=== PATIENT | female | born 1965 | race African-American/Black ===

== ENCOUNTER 2017-03-24 19:20 | Inpatient (IN) | payer OTHER ==
[2017-03-24 19:59] LABS: Hemoglobin 14.2 g/dL (12.0-16.0); Mean Corpuscular Hemoglobin 25.5 pg (27.0-31.0); Mean Corpuscular Volume 75.1 fl (81.0-99.0); Mean Platelet Volume 9.5 fL (7.4-10.4); Platelet Count 175 thou/uL (130-400); RBC Distribution Width 13.7 % (11.5-14.5); Red Blood Cell (RBC) Count 5.58 mill/uL (4.20-5.40); White Blood Cell (WBC) Count 6.7 thou/uL (4.8-10.8)
[2017-03-24 20:10] LABS: PTT 27.2 SEC (22.9-36.1); Prothrombin Time 13.7 SEC (12.0-14.7)
[2017-03-24 20:12] LABS: D-Dimer Test 3.1 *mcg/mL (0.27-0.43)
[2017-03-24 20:19] LABS: ALT (SGPT) 28 U/L (8-55); AST (SGOT) 28 U/L (5-34); Albumin 3.6 g/dL (3.5-5.0); Alkaline Phosphatase 76 U/L (40-150); Anion Gap 38 mmol/L (10-20); Bilirubin, Total 0.6 mg/dL (0.2-1.2); CK (CPK) 333 U/L (29-168); Calc. Creatinine Clearance 0 mL/min (70-130); Calcium 9.9 mg/dL (7.8-10.44); Carbon Dioxide 10 mmol/L (22-29); Chloride 97 mmol/L (98-107); Estimated GFR-MDRD 2; Globulin 6.9 g/dL (2.4-3.5); Glucose 117 mg/dL (70-105); Lipase 53 U/L (8-78); Magnesium 3.5 mg/dL (1.6-2.6); Potassium 6.5 mmol/L (3.5-5.1); Protein, Total 10.5 g/dL (6.0-8.3); Sodium 138 mmol/L (136-145)
[2017-03-24 20:22] LABS: #Basophils 0.1 thou/uL (0.0-0.2); #Lymphocytes 1.6 thou/uL (1.20-3.40); #Monocytes 0.4 thou/uL (0.11-0.59); #Neutrophils 4.6 thou/uL (1.40-6.50); %Basophils 1.2 % (0.0-1.0); %Eosinophils 0.1 % (0.0-10.0); %Monocytes 5.4 % (0.0-10.0); %Neutrophils 69.4 % (42.0-75.0); Large Platelets SLIGHT; MDiff Complete? YES; PLT Morphology Comment Appears Adequate; RBC Morphology Normal
[2017-03-24 20:30] LABS: Troponin I 0.037 ng/mL (< 0.028)
[2017-03-24 20:33] LABS: CKMB 7.5 ng/mL (0-6.6)
[2017-03-24 20:40] LABS: BUN (Urea Nitrogen) 186 mg/dL (9.8-20.1)
--- NOTE | 2017-03-24 21:22 | RAD ---
PORTABLE CHEST ONE VIEW: 03/24/17 at 7:08 p.m. HISTORY: Sepsis. FINDINGS: Comparison made with exam of 12/31/14. The heart size is normal. No confluent areas of consolidation, pneumothorax or pleural effusions are seen. IMPRESSION: No radiographic evidence of acute cardiopulmonary process. POS: [facility]
--- NOTE | 2017-03-24 21:36 | CT ---
CT BRAIN WITHOUT CONTRAST 03/24/17 HISTORY: Altered mental status, dizziness, headache. FINDINGS: No evidence of acute infarct, hemorrhage, midline shift or abnormal extra-axial fluid collections are seen. Ventricular size is normal and the basilar cisterns patent. The bony calvarium is intact. Ther e is mucosal disease in the paranasal sinuses. IMPRESSION: No CT evidence of acute intracranial process. POS: [facility]
[2017-03-24] MEDS ORDERED: Calcium Chloride 1 GM/10 ML Abboject SYRINGE ONE (21:41)
[2017-03-24] MEDS ORDERED: Dextrose 50% Abboject 50 ML SYRINGE ONE (21:42)
[2017-03-24] MEDS ORDERED: Sodium Bicarb 50 MEQ/50 ML Abboject 8.4% SYRINGE ONE (21:43)
[2017-03-24 21:50] LABS: Bilirubin Moderate (Negative); Blood, Urine Small (Negative); Clarity CLOUDY (Clear); Glucose, Urine (Dipstick) Negative (Negative); Leukocyte Negative (Negative); Nitrite Negative (Negative); Protein, Urine (Dipstick) 100 mg/dL (Neg-Trace); Specific Gravity, Urine 1.024 (1.002-1.036); Urobilinogen 0.2 mg/dL (0.2-1.0)
[2017-03-24 21:54] LABS: Bacteria/HPF None Seen HPF (None Seen); Squamous Epithelial 21-50 HPF (0-3)
[2017-03-24 21:55] LABS: Yeast-AUWi Flag 209.4 (0-25.0)
[2017-03-24] MEDS ORDERED: cefTRIAXone\\ROCEPHIN 2 GM in Sodium Chloride 0.9% 100 ML IVPB SCH (22:00)
[2017-03-24] MEDS ORDERED: Insulin Regular 300 UNITS/3 ML VIAL IVP SCH (22:00)
[2017-03-24 22:03] LABS: Transitional Epithelial 0-3 HPF (0-3); Yeast-All Forms None Seen HPF (None Seen)
[2017-03-24 22:04] LABS: Hyaline Casts/LPF 0-3 HYALINE CAST LPF (0-3 Hyaline); Other Casts/LPF 7-10 COARSE GRAN LPF (0-3 Hyaline)
[2017-03-24] MEDS ORDERED: Insulin Regular 300 UNITS/3 ML VIAL ONE (22:09)
[2017-03-24 22:30] LABS: Creatinine, Urine 377.77 mg/dL (47-110)
--- NOTE | 2017-03-25 00:02 | CT ---
CT ABDOMEN AND PELVIS WITHOUT CONTRAST 03/24/17 HISTORY: Abdominal pain. FINDINGS: Absence of oral and IV contrast reduces the sensitivity of the exam particularly for evaluation of so lid organs and bowel. There are mild reticulonodular infiltrates in the lung bases, right greater than left. No calcified g allstones are seen. No calculi noted in the kidneys, ureters or urinary bladder. No hydroureteronephr osis seen on either side. There is a 11 mm hyperdense focus in the posterior right renal cortex likel y hemorrhagic cyst. There is sigmoid diverticulosis without evidence of diverticulitis. The uterus is present. There is a Lassiter catheter in a nondistended urinary bladder with presence of air in the lum en. There are vascular calcifications without evidence of aneurysmal dilatation of the abdominal aorta. T here are degenerative changes in the spine. IMPRESSION: 1. No CT evidence of urinary tract calculi or obstruction. 2. Sigmoid diverticulosis. POS: [facility]
[2017-03-25] MEDS ORDERED: Lorazepam 2 MG/ML VIAL ONE (00:42)
[2017-03-25] MEDS ORDERED: Lidocaine 1% (PF) 30 ML VIAL ONE (00:57)
[2017-03-25 02:11] LABS: HBSAg Index 0.26 S/CO (0-0.99); Hep B Surf Ag Non-Reactive S/CO (NonReactive)
[2017-03-25] MEDS ORDERED: Ondansetron HCl/PF 4 MG/2 ML Vial IVP PRN (03:37)
[2017-03-25] MEDS ORDERED: Ondansetron ODT 4 MG TAB PO PRN (03:37)
[2017-03-25] MEDS ORDERED: Acetaminophen 325 MG TAB PO PRN (03:37)
[2017-03-25 04:58] LABS: Osmolality, Serum 348 mOsm/kg (280-295)
--- NOTE | 2017-03-25 06:22 | PDOC.FM ---
- Subjective Subjective: Magdalena Norman is unable to provide much history at all. She is A&OX3. She only complains of weakness and dizziness. Denies chest pain, dyspnea, fever. - Objective MAR Reviewed: Yes Result Diagrams: 03/25/17 09:58 03/25/17 09:58 <Daren David - Last Filed: 03/25/17 10:54> - Objective Vital Signs & Weight: Vital Signs (12 hours) Pulse Resp Pulse Ox 03/25/17 08:48 112 H 16 96 Result Diagrams: 03/25/17 09:58 03/25/17 09:58 <AlegriaRonnie R - Last Filed: 03/25/17 11:13> Phys Exam - Physical Examination Constitutional: NAD HEENT: sclera anicteric Dry mucous membranes Neck: supple, full ROM Respiratory: no wheezing, no rales, no rhonchi, clear to auscultation bilateral Cardiovascular: RRR, no significant murmur Gastrointestinal: soft, non-tender, no distention Musculoskeletal: no edema, pulses present Neurological: non-focal, moves all 4 limbs Deviation from normal: A&O x 3, confused, slow to answer questions <FrankieDaren - Last Filed: 03/25/17 10:54> Dx/Plan (1) Acute renal failure Status: Acute Plan: Unknown etiology at this time Check Renal U/S Brain CT, Abd CT, CXR all unremarkable Emergent dialysis Dr. Yan, nephrology, consulted, appreciate recs Check VBG, cortisol, uds (2) Increased anion gap metabolic acidosis Code(s): E87.2 - ACIDOSIS Status: Acute Plan: 2/2 to uremia Continue to monitor Dialysis (3) Hyperkalemia Code(s): E87.5 - HYPERKALEMIA Status: Acute Plan: Inital K 6.5 Calcium Chloride and Insulin given in the ED Recheck level this morning Dialysis (4) Hypermagnesemia Code(s): E83.41 - HYPERMAGNESEMIA Status: Acute Plan: Pt to receive dialysis (5) Elevated d-dimer Code(s): R79.89 - OTHER SPECIFIED ABNORMAL FINDINGS OF BLOOD CHEMISTRY Status : Acute (6) Elevated troponin Code(s): R74.8 - ABNORMAL LEVELS OF OTHER SERUM ENZYMES Status: Acute Plan: Indeterminant X3 (7) HTN (hypertension) Code(s): I10 - ESSENTIAL (PRIMARY) HYPERTENSION Status: Acute Plan: home meds (8) Asthma Code(s): J45.909 - UNSPECIFIED ASTHMA, UNCOMPLICATED Status: Acute Plan: wheezing on exam duonebs (9) Yeast infection Code(s): B37.9 - CANDIDIASIS, UNSPECIFIED Status: Acute Plan: top nystatin <Daren David - Last Filed: 03/25/17 10:54> Attending Addendum - Attending Addendum I personally evaluated the patient and discussed the management with Dr. David. I agree with the History, Examination, Assessment and Plan documented above with any addition or exceptions noted below. Patient is somewhat more oriented this morning during our conversation. She is alert and oriented x 2.5, said the year was 2017. She is awaiting further nephro input regarding urgent hemodialysis due to her severe acute renal failure. She is making urine that does not appear that abnormal at this time. Some urine studies pending. It is possible she has a possible ATN at this time due to the presence of casts in urine. Avoid nephrotoxic agents and continue fluid hydration. Patient is not sure of her medications but need to ensure she is not on something that can cause renal disease. Based on her CBC, I do not feel this is a chronic onset of illness. She continues to be mildly encephalopathic, likely from uremia. We will do basic workup to ensure there is not another cause such as infection, neurological disease, endocrine related. Renal U/S did not show any obstructive issues or signs of chronic renal disease. <Ronnie Alegria - Last Filed: 03/25/17 11:13>
--- NOTE | 2017-03-25 08:09 | ULT ---
BILATERAL RENAL SONOGRAM: Date: 03/25/17 HISTORY: Renal failure. FINDINGS: Right kidney is 10.0 cm in length. There is no evidence of hydronephrosis. Small cyst is present at t he cortex of the mid portion of the kidney posteriorly. The left kidney is 10.0 cm in length and has a normal appearance without evidence of hydronephrosis. Urinary bladder is decompressed. IMPRESSION: 1. No evidence of urinary tract obstruction. 2. Small right renal cyst. POS: [facility]
--- NOTE | 2017-03-25 08:18 | RAD ---
PORTABLE SUPINE KUB: Date: 03-25-17 Comparison: None. History: Tube FINDINGS: There is a vascular catheter overlying the right sacroiliac joint/right hemipelvis, terminating along the right aspect of L4 vertebral body. Supine imaging limits assessment for free intraperitoneal air and small bowel obstruction. The bowel gas pattern appears nonobstructed. IMPRESSION: Right femoral vascular catheter. POS: [facility]
--- NOTE | 2017-03-25 09:13 | HP-2 ---
CODE STATUS: FULL. PRIMARY CARE PHYSICIAN: [facility]. ATTENDING: Nusrat Cisneros M.D. RESIDENT: Ju Albright D.O. HISTORIAN: Patient. CHIEF COMPLAINT: Dizziness. HISTORY OF PRESENT ILLNESS: The patient is a 51-year-old female with dizziness onset 3 weeks ago ass ociated with poor appetite and nausea as well as no urine output for the last 2 weeks. The patient a lso reports no BM for the last 2 weeks. The patient is a poor historian as the patient is alert and oriented x2 at time of interview. She was found to have acute renal failure in the ED. Questioned a bout medication changes, she denies any medication changes. Taking any family member's medications. No [id number]-fzocvye medications or supplements. No history of kidney stones or prior kidney disease , although per chart review has chronic kidney disease stage III at last visit in 2014. No family hi story of kidney disease. The patient also reports dysuria over the last couple of days. Also, in ED, found to have elevated potassium and was given Novolin 10 units, sodium bicarbonate 1 amp, calc ium chloride and D50 water 1 amp. PAST MEDICAL HISTORY: 1. Borderline diabetes mellitus. 2. Hypertension. 3. Obesity. 4. Asthma. 5. Bipolar. 6. Schizoaffective disorder. PAST SURGICAL HISTORY: Bilateral tubal ligation. ALLERGIES: No known drug allergies. MEDICATIONS: Per chart, these are correct home medications, but unsure of dose. 1. HCTZ 25 mg daily. 2. Lisinopril 10 mg daily. 3. Proventil HFA. 4. Citalopram 20 mg daily. 5. Breo Ellipta 2 puffs daily. 6. Advair 2 puffs daily. 7. Albuterol sulfate HFA. 8. Motrin 600 mg q.6 hours p.r.n. FAMILY HISTORY: No family history of kidney disease. SOCIAL HISTORY: The patient reports one and a half pack per day for the last 40 years. Reports drin ks beer 2-3 times per week and past cocaine use, although has not used crack cocaine over a year. e patient currently is residing with a daughter due to acute illness. REVIEW OF SYSTEMS: A 12 point review of systems performed and found to be positive of those things l isted in HPI as well as decreased appetite, headache, shortness of breath, generalized weakness and f eeling of passing out on occasion. PHYSICAL EXAMINATION: VITAL SIGNS: Blood pressure 111/54, pulse 96, respiratory rate 21, T-max 98.1, pulse oximetry 96% on room air, current weight 110.2 kilograms. GENERAL: The patient is alert and oriented x2 and has slowed mentation. EYES: PERRLA, EOMI. ENT: TMs pearly mar without bulging or erythema. Poor dentition with dry mucous membranes and poss ible uremic gomez. Oropharynx within normal limits. Nasal mucosa within normal limits. NECK: Supple without lymphadenopathy. CARDIOVASCULAR: Regular rate and rhythm, no murmurs. RESPIRATORY: Normal effort, no retractions. Does have wheezing bilaterally. ABDOMEN: Soft and nontender. Bowel sounds present. EXTREMITIES: No clubbing, cyanosis. Does have trace edema. MUSCULOSKELETAL: Structure within normal limits. Tone within normal limits. NEUROLOGIC: No focal deficits. PSYCHIATRIC: With altered marked mentation, hard to distinguish. LABORATORY DATA AND IMAGING DATA: 1. CBC was performed and showed white blood cell count of 6.7, hemoglobin 14.2, hematocrit 41.9, peter telets 175. 2. Chemistries: Sodium 138, potassium 6.5, chloride 97, bicarbonate 10, BUN 186, creatinine 21.11. GFR of 2, glucose 117, anion gap 21, calcium 9.9, total protein 10.5, albumin 3.6, AST 20, ALT 28, a lkaline phosphatase 76, total bilirubin 0.6, lipase 53, and magnesium 3.5. 3. Type and screen O positive, antibody negative. 4. Lactic acid was 2. 5. Flu is negative. 6. Coag studies: PTT 27.2, PT 13.7, INR 1.0. 7. D-dimer 3.10. 8. CK 333, CK-MB 7.5, troponin 0.037. 9. UA was performed and found to have 21-50 squamous cells, not accurate sample. 10. Chest x-ray, no acute process. 11. CT brain, no acute intracranial process. ASSESSMENT AND PLAN: 1. Acute renal failure - unknown cause. We will get a renal ultrasound and CT to rule out stones. Urine studies to calculate FENa and urine serum osmolality. Emergent dialysis. Baseline chronic kid tommy disease 3 with glomerular filtration rate of 55 in 2015 per records. We will repeat urinalysis a nd send urine cultures. 2. Hyperkalemia. We will recheck in the morning. Calcium chloride and insulin were given in the ED . EKG within normal limits. 3. Hypomagnesemia. The patient to receive dialysis. We will recheck in the morning after dialysis. 4. Elevated D-dimer with pulmonary embolism, not likely from history. We will consider a repeat pos t-dialysis. 5. Elevated troponins/CK-MB. We will trend likely due to demand. 6. History of drug use, good UDS. 7. Anion gap metabolic acidosis likely secondary to uremia. 8. Hypertension. We will give home medications. Hold for now as patient is hypotensive. 9. Prediabetes. We will check an A1c. 10. Psych disorders. We will hold citalopram with possible cause of retention. 11. Asthma with wheezing on exam. We will give DuoNebs. 12. Yeast infection reported by ER nurse. We will provide topical nystatin. DISPOSITION AND LENGTH OF HOSPITAL STAY: 1-2 days. Symptomatic medication will be provided. History and physical exam as well as management discussed with Dr. Nusrat Cisneros and education services .
[2017-03-25] MEDS ORDERED: Heparin 5,000 UNITS/ML VIAL ONE (09:37)
[2017-03-25 10:09] LABS: #Basophils 0.1 thou/uL (0.0-0.2); #Lymphocytes 0.9 thou/uL (1.20-3.40); #Monocytes 0.4 thou/uL (0.11-0.59); #Neutrophils 5.1 thou/uL (1.40-6.50); %Basophils 1.4 % (0.0-1.0); %Eosinophils 0.1 % (0.0-10.0); %Lymphocytes 13.7 % (21.0-51.0); %Monocytes 6.3 % (0.0-10.0); %Neutrophils 78.6 % (42.0-75.0); Hemoglobin 13.7 g/dL (12.0-16.0); Mean Corpuscular HGB CONC 33.3 g/dL (32.0-36.0); Mean Corpuscular Volume 75.1 fl (81.0-99.0); Mean Platelet Volume 11.6 fL (7.4-10.4); Platelet Count 163 thou/uL (130-400); Red Blood Cell (RBC) Count 5.49 mill/uL (4.20-5.40); White Blood Cell (WBC) Count 6.4 thou/uL (4.8-10.8)
[2017-03-25 10:27] LABS: ALT (SGPT) 25 U/L (8-55); AST (SGOT) 18 U/L (5-34); Albumin 3.5 g/dL (3.5-5.0); Alkaline Phosphatase 71 U/L (40-150); Anion Gap 31 mmol/L (10-20); Bilirubin, Total 0.7 mg/dL (0.2-1.2); Calc. Creatinine Clearance 0 mL/min (70-130); Calcium 9.9 mg/dL (7.8-10.44); Carbon Dioxide 16 mmol/L (22-29); Chloride 103 mmol/L (98-107); Estimated GFR-MDRD 3; Globulin 5.7 g/dL (2.4-3.5); Glucose 111 mg/dL (70-105); Potassium 3.8 mmol/L (3.5-5.1); Protein, Total 9.2 g/dL (6.0-8.3); Sodium 146 mmol/L (136-145)
[2017-03-25 10:39] LABS: BUN (Urea Nitrogen) 126 mg/dL (9.8-20.1)
[2017-03-25 10:41] LABS: Actual Bicarbonate (HCO3v) 18 mEq/L (22-26); Base Excess -6.6 mEq/L (0 (+/- 2.5)); Calcium, Ionized 0.95 mmol/L (1.16-1.32); Chloride (ABG LAB) 104 mmol/L (98-106); Hemoglobin (Hb) 13.5 g/dL (11.7-16.0); Potassium - ABG Lab 4.8 mmol/L (3.70-5.30); Sodium 142.2 mmol/L (133-146); pH (venous) 7.37 (7.35-7.45)
[2017-03-25 10:43] LABS: Analyzer IN Cardio ER
[2017-03-25 11:06] LABS: Amphetamine Not Detected (NotDetected); Barbiturates Screen Not Detected (NotDetected); Benzodiazepine Screen Not Detected (NotDetected); Cocaine Metabolite Screen Not Detected (NotDetected); Medtox Control Line Valid? VALID (VALID); Medtox Reader # READER 4; Methadone Not Detected (NotDetected); Methamphetamine Not Detected (NotDetected); Opiate Screen Not Detected (NotDetected); Oxycodone Screen Not Detected (NotDetected); Phencyclidine (PCP) Not Detected (NotDetected); THC/Cannabinoid Screen Not Detected (NotDetected); Tricyclic Screen Not Detected (NotDetected)
[2017-03-25 12:03] VITALS: BMI 45.9
[2017-03-25] MEDS: Docusate 100 MG CAP PO SCH ×2 (12:05→22:19)
[2017-03-25] MEDS: Nystatin Ointment 15 GM TUBE TOP SCH ×2 (12:05→22:25)
[2017-03-25] MEDS: Sodium Chloride 0.9% 1,000 ML IV SCH ×2 (12:06→16:11)
[2017-03-25] MEDS: Heparin 5,000 UNITS/ML VIAL SC SCH ×3 (12:12→22:20)
--- NOTE | 2017-03-25 12:16 | CON ---
DATE OF CONSULTATION: 03/25/2017 RENAL MEDICINE HISTORY OF PRESENT ILLNESS: Ms. Norman is a 50-year-old black female who was admitted for her mild s hortness of breath. On initial evaluation, she was found to have severely elevated creatinine and hy perkalemia. She underwent emergent hemodialysis for one hour. However, during the said dialysis, th e patient dropped her blood pressure. Currently, she has received IV hydration. On exam of this patient, she is noted to be somewhat sleepy. REVIEW OF SYSTEMS: Not obtainable since the patient is sleepy, but she is arousable. She can follow simple commands. MEDICATIONS: Currently on Tylenol 650 mg q.4 p.r.n., DuoNeb q.4 p.r.n., heparin 5000 units subcu t.i .d., nystatin as directed, Zofran 4 mg IV q.6 p.r.n. According to the patient, she has a history of chronic NSAID intake. PAST MEDICAL HISTORY: The patient denies any significant medical problems. I did review the last ER note on her back on 12/31/2014. Based on that record, the patient has history of asthma, hypertensi on, and? diabetes. PAST SURGICAL HISTORY: No significant surgeries. CURRENT MEDICATIONS: Unknown. ALLERGIES: Unknown. TRAUMA: None. IMMUNIZATIONS: Unknown. HOSPITALIZATIONS: Please see past medical history. SOCIAL HISTORY: The patient is , 4 children, lives in [place]. Smoked for about 1 pack a day f or the last several years. No alcohol, no IV drug abuse. Sedentary lifestyle. FAMILY HISTORY: Unknown/noncontributory. PHYSICAL EXAMINATION: VITAL SIGNS: Blood pressure is 105/78, heart rate 70. GENERAL: Arousable sleepy, not in distress, obese. SKIN: Adequate turgor. HEENT: She has pinkish conjunctivae, anicteric sclerae. NECK: No neck mass, no carotid bruits, no JVD. CHEST: No deformities. LUNGS: Clear breath sounds. No wheezing, no crackles. HEART: Normal sinus rhythm. No murmur, no gallops, no rubs. ABDOMEN: Globular, soft, nontender, no masses. EXTREMITIES: No edema, no deformities. NEUROLOGIC: Arousable, sleepy, oriented to 2 spheres. LABORATORY DATA AND IMAGING DATA: Laboratories of 03/24/2017; white count 6.7, hemoglobin 14.2. On 03/24/2017, sodium 138, potassium 6.5, chloride 97, carbon dioxide 10, BUN 186, creatinine 21, GFR is 2. Calcium 9.9, AST 28, ALT 28, albumin 3.6. TSH 1.2, troponin I 0.03. Further review of her creatinine came back on 12/31/2014, creatinine 1.32. Renal ultrasound normal, no obstruction. Chest x-ray no infiltrates. CT scan of the brain, no acute intracranial process. Urinalysis was reviewed and there is evidence of acute tubular necrosis - 7-10 coarse granular casts. ASSESSMENT AND PLAN: 1. Acute kidney injury - consider possibility of prerenal azotemia with superimposed acute tubular n ecrosis. Hemodialysis as needed. We will again reschedule her for dialysis in a.m. An attempt to d ialyze last night for 1 hour caused blood pressure to drop. This may suspect the patient is volume d epleted. I have restarted her normal saline at 125 mL per hour. Continue supportive care. 2. Hyperkalemia status post dialysis. Recheck basic metabolic panel in a.m. 3. Overall, prognosis remains guarded.
[2017-03-25 14:31] LABS: Anion Gap 35 mmol/L (10-20); Calc. Creatinine Clearance 9 mL/min (70-130); Calcium 9.1 mg/dL (7.8-10.44); Chloride 106 mmol/L (98-107); Estimated GFR-MDRD 4; Glucose 98 mg/dL (70-105); Sodium 146 mmol/L (136-145)
[2017-03-25 14:35] LABS: Carbon Dioxide 9 mmol/L (22-29)
[2017-03-25 14:45] LABS: BUN (Urea Nitrogen) 128 mg/dL (9.8-20.1)
--- NOTE | 2017-03-25 15:55 | PDOC.EVN ---
Event Note - Event Note Event Note: Was informed of critical lab value, bicarb at 9. Spoke with nephrology specialist, Dr. Yan. Situation was discussed and plan is to start 1/2NS with 2 amp bicarb at 125 ml/hr.
[2017-03-25] MEDS ORDERED: Sodium Chloride 0.45% 1,000 ML IV SCH (16:00)
[2017-03-25] MEDS: Mometasone/Formoterol 120 PUFF INHALER INH SCH (18:38)
[2017-03-25] MEDS ORDERED: FLU VACC QS2017-18 36 mo. & older 0.5 ML SYRINGE IM ONE (21:00)
[2017-03-25] MEDS ORDERED: Gentamicin 20 MG/2 ML PF (Neonates) IVPB SCH (21:00)
[2017-03-25] MEDS ORDERED: Ampicillin 500 MG VIAL SLOW IVP SCH (21:45)
[2017-03-26 05:29] LABS: Hemoglobin A1c 7.5 % (4.0-6.0)
--- NOTE | 2017-03-26 05:45 | PDOC.FM ---
- Subjective Subjective: Mrs. Norman states that she is feeling better this morning, states she has no acute events overnight. She denies any fever, chills, n/v/d, chest pain, dyspnea. - Objective Vital Signs & Weight: Vital Signs (12 hours) Temp Pulse Resp BP Pulse Ox 03/26/17 04:00 98.2 F 90 16 111/61 97 03/26/17 02:37 86 18 96 03/25/17 23:16 110 H 24 H 92 L 03/25/17 20:00 96.6 F L 104 H 18 127/75 96 03/25/17 18:35 103 H 20 97 Weight Weight 110.223 kg I&O: 03/24/17 03/25/17 03/26/17 06:59 06:59 06:59 Intake Total 341 Output Total 350 Balance -9 Result Diagrams: 03/25/17 09:58 03/26/17 04:25 <Daren David - Last Filed: 03/26/17 06:55> - Objective Vital Signs & Weight: Vital Signs (12 hours) Temp Pulse Resp BP Pulse Ox 03/26/17 08:24 98.2 F 90 16 97 03/26/17 04:00 98.2 F 90 16 111/61 97 03/26/17 02:37 86 18 96 Weight Weight 110.223 kg I&O: 03/25/17 03/26/17 03/27/17 06:59 06:59 06:59 Intake Total 341 Output Total 350 Balance -9 Result Diagrams: 03/25/17 09:58 03/26/17 04:25 <Ronnie Alegria - Last Filed: 03/26/17 11:52> Phys Exam - Physical Examination Constitutional: NAD HEENT: moist MMs, sclera anicteric Neck: no JVD, supple, full ROM Respiratory: no wheezing, no rales, no rhonchi, clear to auscultation bilateral Cardiovascular: RRR, no significant murmur Gastrointestinal: soft, no distention Musculoskeletal: no edema, pulses present Neurological: non-focal, moves all 4 limbs Psychiatric: normal affect, A&O x 3 Deviation from normal: mental status improved from yesterday <Daren David - Last Filed: 03/26/17 06:55> Dx/Plan (1) Acute renal failure Status: Acute Plan: Laboratory data consistent with ATN Check Renal U/S Brain CT, Abd CT, CXR all unremarkable Dr. Yan, nephrology, consulted, appreciate recs Dialysis scheduled for today TSH normal, UDS neg PTH is elevated (2) Increased anion gap metabolic acidosis Code(s): E87.2 - ACIDOSIS Status: Acute Plan: 2/2 to uremia Continue to monitor Dialysis scheduled for this morning patient currently getting 1/2 NS with 100 mEq HCO3 at 125 ml/hr (3) Hyperkalemia Code(s): E87.5 - HYPERKALEMIA Status: Resolved Plan: Inital K 6.5, currently 4 Calcium Chloride and Insulin given in the ED Recheck level this morning Dialysis sandra this morning (4) Hypermagnesemia Code(s): E83.41 - HYPERMAGNESEMIA Status: Acute Plan: Pt to receive dialysis this morning (5) Elevated d-dimer Code(s): R79.89 - OTHER SPECIFIED ABNORMAL FINDINGS OF BLOOD CHEMISTRY Status : Acute (6) Elevated troponin Code(s): R74.8 - ABNORMAL LEVELS OF OTHER SERUM ENZYMES Status: Acute Plan: Indeterminant X3 (7) HTN (hypertension) Code(s): I10 - ESSENTIAL (PRIMARY) HYPERTENSION Status: Acute Plan: home meds, continue to monitor vitals (8) Asthma Code(s): J45.909 - UNSPECIFIED ASTHMA, UNCOMPLICATED Status: Acute Plan: wheezing on exam duonebs (9) Yeast infection Code(s): B37.9 - CANDIDIASIS, UNSPECIFIED Status: Acute Plan: top nystatin <Daren David - Last Filed: 03/26/17 06:55> Attending Addendum - Attending Addendum I personally evaluated the patient and discussed the management with Dr. David. I agree with the History, Examination, Assessment and Plan documented above with any addition or exceptions noted below. Renal function still acute and end stage, but continues to make urine and has decreasing Cr with fluid hydration. Continue HD as needed per Nephro. Hopeful that she will get return of some renal function. Continue to be unaware of precipitating cause, no external toxins found thus far. Encephalopathy improved , expect it to continue to improve with return on renal function. <Ronnie Alegria - Last Filed: 03/26/17 11:52>
[2017-03-26] MEDS ORDERED: Gentamicin Sulfate 100 MG in Premix Bag 1 BAG IVPB SCH (06:00)
[2017-03-26 06:02] LABS: ALT (SGPT) 18 U/L (8-55); AST (SGOT) 17 U/L (5-34); Albumin 3.2 g/dL (3.5-5.0); Alkaline Phosphatase 68 U/L (40-150); Anion Gap 20 mmol/L (10-20); BUN (Urea Nitrogen) 120 mg/dL (9.8-20.1); Bilirubin, Total 0.4 mg/dL (0.2-1.2); Calc. Creatinine Clearance 16 mL/min (70-130); Carbon Dioxide 20 mmol/L (22-29); Chloride 110 mmol/L (98-107); Estimated GFR-MDRD 7; Globulin 4.9 g/dL (2.4-3.5); Glucose 140 mg/dL (70-105); Magnesium 1.9 mg/dL (1.6-2.6); Phosphorus 6.6 mg/dL (2.3-4.7); Potassium 3.3 mmol/L (3.5-5.1); Protein, Total 8.1 g/dL (6.0-8.3); Sodium 147 mmol/L (136-145)
[2017-03-26] MEDS: Mometasone/Formoterol 120 PUFF INHALER INH SCH ×3 (06:54→18:52)
[2017-03-26] MEDS: Heparin 5,000 UNITS/ML VIAL SC SCH ×3 (08:18→20:55)
[2017-03-26] MEDS: Nystatin Ointment 15 GM TUBE TOP SCH ×2 (08:19→20:55)
[2017-03-26] MEDS: Docusate 100 MG CAP PO SCH ×2 (08:19→20:55)
[2017-03-26] MEDS ORDERED: Hydrochlorothiazide 25 MG TAB PO SCH (09:00)
[2017-03-26] MEDS ORDERED: Lisinopril 20 MG TAB PO SCH (09:00)
--- NOTE | 2017-03-26 09:47 | PRG ---
DATE OF SERVICE: 03/26/2017 SUBJECTIVE: Ms. Norman is a 50-year-old black female who was seen for acute kidney injury. At that time, the creatinine was noted at 13.47 with a BUN of 126. She underwent emergent hemodialysis x1 ho ur. During this dialysis, blood pressure dropped down. I will observe her in the next 12 hours and she has been making significant amounts of urine output. Initially I thought she may have a superimp osed ATN. Please note she was on KALANI inhibitors on hydrochlorothiazide as an outpatient. She has be en making adequate urine output. In addition, her creatinine has dramatically dropped down from 13 t o a most recent value of 7.19. In addition, metabolic acidosis much improved with sodium bicarbonate . My plan is to hold off any dialysis this morning. No complaints of chest pain, no shortness of breath. The patient is noted to be more awake. OBJECTIVE: VITAL SIGNS: Blood pressure is 111/61, heart rate 90, respiratory rate 16, temperature 98.2, pulse o x 97%. GENERAL: She is noted to be awake, alert, comfortable, oriented. SKIN: Decreased turgor. HEENT: She has pinkish conjunctivae, anicteric sclerae. NECK: No neck mass, no carotid bruits, no JVD. CHEST: No deformities. LUNGS: Clear breath sounds. No wheezing, no crackles. HEART: Normal sinus rhythm. No murmur, no gallops or rubs. ABDOMEN: Globular, soft, nontender, no masses. EXTREMITIES: No edema, no deformities. MEDICATIONS: Of 03/26/2017 was reviewed. LABORATORY DATA: Of 03/26/2017, sodium 147, potassium 3.3, chloride 110, carbon dioxide 20, BUN 120, creatinine 7.19, glucose 140, phosphorus 6.6, magnesium 1.9, albumin 3.2. ASSESSMENT AND PLAN: 1. Acute kidney injury - initially, we felt that this was an acute tubular necrosis. However, my mejias spicion is that she may simply have hemodynamically mediated renal dysfunction. She is diuresing wel l. Her metabolic acidosis is much improved. In addition, she is on volume overload. For this reaso n, I think we can hold dialysis today and simply continue to observe her. I would continue with volu me repletion. 2. Hypernatremia - if patient's sodium further worsens, we could consider changing IV fluid to more hypotonic solution 1/2 normal saline at the same rate. 3. Mild hypokalemia. Continue to observe p.r.n. replacement. Agree with current management.
[2017-03-26] MEDS ORDERED: Polyethylene Glycol 3350 17 GM Packet PO PRN (13:59)
[2017-03-26] MEDS ORDERED: Ampicillin 500 MG VIAL SLOW IVP SCH (21:00)
[2017-03-27 05:17] LABS: Anion Gap 16 mmol/L (10-20); BUN (Urea Nitrogen) 78 mg/dL (9.8-20.1); Calc. Creatinine Clearance 37 mL/min (70-130); Calcium 8.7 mg/dL (7.8-10.44); Carbon Dioxide 30 mmol/L (22-29); Chloride 106 mmol/L (98-107); Estimated GFR-MDRD 22; Glucose 97 mg/dL (70-105); Potassium 2.7 mmol/L (3.5-5.1); Sodium 149 mmol/L (136-145)
[2017-03-27] MEDS ORDERED: Potassium Chloride 20 MEQ TAB PO SCH ×2 (05:45→11:30)
--- NOTE | 2017-03-27 06:05 | PDOC.FM ---
- Subjective Subjective: Mrs. Norman is doing well this morning. She has no complaints and has no questions. She denies any chest pain, dyspnea, fever, chills. She does have some nausea, no vomiting, diarrhea, or abd pain. - Objective MAR Reviewed: Yes Vital Signs & Weight: Vital Signs (12 hours) Temp Pulse Resp BP BP Pulse Ox 03/27/17 03:34 98.1 F 93 18 121/63 93 L 03/27/17 02:55 91 16 97 03/27/17 00:00 20 03/26/17 23:15 96 18 96 03/26/17 20:00 98.1 F 90 20 123/94 H 97 03/26/17 18:52 95 18 97 Weight Admit Weight 110.223 kg Weight 97.749 kg I&O: 03/25/17 03/26/17 03/27/17 06:59 06:59 06:59 Intake Total 341 1010 Output Total 350 2075 Balance -9 -8419 Result Diagrams: 03/25/17 09:58 03/27/17 04:04 <Daren David - Last Filed: 03/27/17 08:02> - Objective Vital Signs & Weight: Vital Signs (12 hours) Temp Pulse Resp BP Pulse Ox 03/27/17 09:44 85 14 96 03/27/17 08:00 98.0 F 85 14 117/65 96 03/27/17 06:26 93 16 96 03/27/17 06:24 93 16 96 03/27/17 03:34 98.1 F 93 18 121/63 93 L 03/27/17 02:55 91 16 97 Weight Admit Weight 110.223 kg Weight 97.749 kg I&O: 03/26/17 03/27/17 03/28/17 06:59 06:59 06:59 Intake Total 341 1310 Output Total 350 2075 Balance -9 -798 Result Diagrams: 03/25/17 09:58 03/27/17 04:04 <Ronnie Alegria - Last Filed: 03/27/17 12:26> Phys Exam - Physical Examination Constitutional: NAD HEENT: moist MMs, sclera anicteric Neck: no JVD, full ROM Respiratory: no wheezing, no rales, no rhonchi, clear to auscultation bilateral Cardiovascular: RRR, no significant murmur Gastrointestinal: soft, non-tender, no distention Musculoskeletal: no edema, pulses present Neurological: non-focal, normal sensation, moves all 4 limbs Psychiatric: normal affect, A&O x 3 <Daren David - Last Filed: 03/27/17 08:02> Dx/Plan (1) Acute renal failure Status: Acute Plan: Laboratory data consistent with ATN Brain CT, Abd CT, CXR, renal US all unremarkable Dr. Yan, nephrology, consulted, appreciate recs TSH normal, UDS neg PTH is elevated, Vit D low, currently supplementing -Kidney function has been improving with IVFs, patient has not required dialysis since admission -Stop Sodium Bicard infusion, Spoke with Dr. Yan, plan is to start 1/2 NS at 125 ml/hr. (2) Increased anion gap metabolic acidosis Code(s): E87.2 - ACIDOSIS Status: Resolved Plan: 2/2 to uremia Continue to monitor Discontinued the 1/2 NS with 100 mEq HCO3 at 125 ml/hr this morning 2/2 Bicarb up to 30 Discussed fluid options with Dr. Yan this morning. Decided on 1/2 NS at 125 ml/ hr. (3) Hyperkalemia Code(s): E87.5 - HYPERKALEMIA Status: Resolved Plan: Inital K 6.5, currently 2.7 Calcium Chloride and Insulin given in the ED -Supplementing Potassium this morning, will recheck value this morning (4) Hypermagnesemia Code(s): E83.41 - HYPERMAGNESEMIA Status: Acute Plan: Continue to monitor (5) Elevated d-dimer Code(s): R79.89 - OTHER SPECIFIED ABNORMAL FINDINGS OF BLOOD CHEMISTRY Status : Acute (6) Elevated troponin Code(s): R74.8 - ABNORMAL LEVELS OF OTHER SERUM ENZYMES Status: Acute Plan: Indeterminant X3 (7) HTN (hypertension) Code(s): I10 - ESSENTIAL (PRIMARY) HYPERTENSION Status: Acute Plan: home meds, continue to monitor vitals (8) Asthma Code(s): J45.909 - UNSPECIFIED ASTHMA, UNCOMPLICATED Status: Acute Plan: home meds (9) Yeast infection Code(s): B37.9 - CANDIDIASIS, UNSPECIFIED Status: Acute Plan: top nystatin <Daren David - Last Filed: 03/27/17 08:02> Attending Addendum - Attending Addendum I personally evaluated the patient and discussed the management with Dr. David. I agree with the History, Examination, Assessment and Plan documented above with any addition or exceptions noted below. Patient with major improvement in mentation. Her renal function is improving and no need for more HD at this current time. She will get K replacement and recheck this afternoon. Good urine output. Will call her PCP today to find out comorbid conditions and med list to see if we can pin down a cause for her acute illness. <Ronnie Alegria - Last Filed: 03/27/17 12:26>
[2017-03-27] MEDS: Mometasone/Formoterol 120 PUFF INHALER INH SCH ×2 (06:26→19:03)
[2017-03-27] MEDS ORDERED: Sodium Chloride 0.45% 1,000 ML IV SCH (08:15)
--- NOTE | 2017-03-27 09:21 | PRG ---
DATE OF SERVICE: 03/27/2017 SUBJECTIVE: Ms. Norman is a 51-year-old black female who was seen for an acute kidney injury. The i nitial diagnosis was acute tubular necrosis. However, her hospital course suggests this is more like ly that of a hemodynamically mediated renal dysfunction. She received IV hydration with spontaneous improvement of the renal function. Most recent creatinine now is noted at 2.73 and this was said to have peaked at a value of 13. She did receive a one-time dialysis. My plan is to hold off dialysis . Continue IV hydration. No new complaints today, no chest pain or shortness of breath. PHYSICAL EXAMINATION: VITAL SIGNS: Blood pressure is 121/63, heart rate 93, respiratory rate 16, pulse oximetry 96%, tempe rature 98.1. GENERAL: Noted to be awake, alert, supine, comfortable, not in distress. SKIN: Adequate turgor. HEENT: She has pinkish conjunctivae, anicteric sclerae. NECK: No neck mass, no carotid bruits, no JVD. CHEST: No deformities. LUNGS: Clear breath sounds. No wheezing, no crackles. HEART: Normal sinus rhythm. No murmur, no gallops or rubs. ABDOMEN: Globular, soft, nontender, no masses. EXTREMITIES: No edema. MEDICATIONS: 03/27/2017 - Reviewed. LABORATORY: 03/27/2017 - White count 6.4, hemoglobin 13.7, sodium 149, potassium 2.7, chloride 106, carbon dioxide 30, BUN 78, creatinine 2.73, GFR 22 mL per minute, glucose 97, calcium 8.7. ASSESSMENT AND PLAN: 1. Acute kidney injury - most likely hemodynamically mediated renal dysfunction. The patient was on KALANI inhibitor on diuretics at home. The plan is to continue IV hydration. No indication for any di alytic intervention today. 2. Hypernatremia/hypokalemia - will change current IV fluid to half normal saline with 20 mEq KCl to run at 125 mL per hour. 3. Metabolic acidosis - sodium bicarbonate IV drip has been discontinued. Overall I agree with current management. Once the renal function further improves, consider removing the femoral dialysis catheter.
[2017-03-27] MEDS: Heparin 5,000 UNITS/ML VIAL SC SCH ×3 (09:31→21:17)
[2017-03-27] MEDS: Docusate 100 MG CAP PO SCH ×2 (09:31→21:17)
[2017-03-27] MEDS: Nystatin Ointment 15 GM TUBE TOP SCH ×2 (09:31→21:17)
[2017-03-27] MEDS: 1/2 NS w/KCL 20 mEq 1,000 ML IV SCH ×3 (11:24→21:22)
[2017-03-27] MEDS ORDERED: Magnesium Oxide 400 MG TAB PO SCH (11:30)
[2017-03-27] MEDS ORDERED: Magnesium Chloride 64 MG TAB PO SCH (11:30)
[2017-03-27] MEDS ORDERED: Potassium Chloride 20 MEQ TAB ONE (12:27)
[2017-03-27 16:28] LABS: Anion Gap 14 mmol/L (10-20); BUN (Urea Nitrogen) 60 mg/dL (9.8-20.1); Calc. Creatinine Clearance 49 mL/min (70-130); Calcium 8.5 mg/dL (7.8-10.44); Carbon Dioxide 32 mmol/L (22-29); Chloride 107 mmol/L (98-107); Estimated GFR-MDRD 31; Glucose 128 mg/dL (70-105); Potassium 3.5 mmol/L (3.5-5.1); Sodium 149 mmol/L (136-145)
[2017-03-28 05:56] LABS: Anion Gap 13 mmol/L (10-20); BUN (Urea Nitrogen) 43 mg/dL (9.8-20.1); Calc. Creatinine Clearance 63 mL/min (70-130); Calcium 8.1 mg/dL (7.8-10.44); Carbon Dioxide 28 mmol/L (22-29); Chloride 110 mmol/L (98-107); Estimated GFR-MDRD 41; Glucose 87 mg/dL (70-105); Potassium 3.6 mmol/L (3.5-5.1); Sodium 147 mmol/L (136-145)
--- NOTE | 2017-03-28 06:09 | PDOC.FM ---
- Subjective Subjective: Mrs. Norman is doing well this morning. She states that she is feeling better and better every day. She denies any acute events overnight, she denies fever, n/v/d, chest pain, dyspnea. She wants to go home today. - Objective MAR Reviewed: Yes Vital Signs & Weight: Vital Signs (12 hours) Temp Pulse Resp BP Pulse Ox 03/28/17 04:00 98.3 F 82 20 130/88 95 03/28/17 03:58 94 L 03/28/17 00:00 20 03/27/17 20:00 98.6 F 91 20 113/60 93 L 03/27/17 19:05 96 03/27/17 19:03 85 16 96 Weight Admit Weight 110.223 kg Weight 97.749 kg I&O: 03/26/17 03/27/17 03/28/17 06:59 06:59 06:59 Intake Total 341 1310 1610 Output Total 350 2075 800 Balance -9 -765 810 Result Diagrams: 03/25/17 09:58 03/28/17 04:46 <Daren David - Last Filed: 03/28/17 07:47> - Objective Vital Signs & Weight: Vital Signs (12 hours) Temp Pulse Resp BP Pulse Ox 03/28/17 11:02 84 16 97 03/28/17 08:30 98.1 F 82 20 135/75 93 L 03/28/17 08:00 98.1 F 82 20 93 L 03/28/17 07:00 82 16 97 03/28/17 04:00 98.3 F 82 20 130/88 95 03/28/17 03:58 94 L 03/28/17 00:00 20 Weight Admit Weight 110.223 kg Weight 99.473 kg I&O: 03/27/17 03/28/17 03/29/17 06:59 06:59 06:59 Intake Total 1310 3520 Output Total 2075 1750 Balance -765 1770 Result Diagrams: 03/25/17 09:58 03/28/17 04:46 <Ronnie Alegria - Last Filed: 03/28/17 11:18> Phys Exam - Physical Examination Constitutional: NAD HEENT: moist MMs, sclera anicteric Neck: no JVD, supple, full ROM Respiratory: no wheezing, no rales, no rhonchi, clear to auscultation bilateral Cardiovascular: RRR, no significant murmur Gastrointestinal: soft, non-tender, no distention Musculoskeletal: no edema, pulses present Neurological: normal sensation, moves all 4 limbs Psychiatric: normal affect, A&O x 3 <Daren David - Last Filed: 03/28/17 07:47> Dx/Plan (1) Acute renal failure Status: Acute Plan: Laboratory data consistent with ATN Brain CT, Abd CT, CXR, renal US all unremarkable Dr. Yan, nephrology, consulted, appreciate recs TSH normal, UDS neg PTH is elevated, Vit D low, currently supplementing -Kidney function has been improving with IVFs, patient has not required dialysis since admission -Stop Sodium Bicard infusion, Spoke with Dr. Yan, plan is to start 1/2 NS at 125 ml/hr. 03/28/17 Patient kidney function has continued to improve, GFR now 41, was 2 on admission Patient will likely have femoral dialysis catheter removed today Pt cleared by Nephrology, Dr. Yan would like pt to follow up in his clinic Pt ready for discharge this morning (2) Increased anion gap metabolic acidosis Code(s): E87.2 - ACIDOSIS Status: Resolved Plan: 2/2 to uremia Continue to monitor Discontinued the 1/2 NS with 100 mEq HCO3 at 125 ml/hr this morning 2/2 Bicarb up to 30 Discussed fluid options with Dr. Yan this morning. Decided on 1/2 NS with 20 mEq at 125 ml/hr. 03/28/17 Resolved (3) Hyperkalemia Code(s): E87.5 - HYPERKALEMIA Status: Resolved Plan: Inital K 6.5, currently 3.6 Calcium Chloride and Insulin given in the ED Cont current management (4) Hypermagnesemia Code(s): E83.41 - HYPERMAGNESEMIA Status: Acute Plan: Continue to monitor (5) Elevated d-dimer Code(s): R79.89 - OTHER SPECIFIED ABNORMAL FINDINGS OF BLOOD CHEMISTRY Status : Acute (6) Elevated troponin Code(s): R74.8 - ABNORMAL LEVELS OF OTHER SERUM ENZYMES Status: Acute Plan: Indeterminant X3 (7) HTN (hypertension) Code(s): I10 - ESSENTIAL (PRIMARY) HYPERTENSION Status: Acute Plan: home meds, continue to monitor vitals (8) Asthma Code(s): J45.909 - UNSPECIFIED ASTHMA, UNCOMPLICATED Status: Acute Plan: home meds (9) Yeast infection Code(s): B37.9 - CANDIDIASIS, UNSPECIFIED Status: Acute Plan: top nystatin <Daren David - Last Filed: 03/28/17 07:47> Attending Addendum - Attending Addendum I personally evaluated the patient and discussed the management with Dr. David. I agree with the History, Examination, Assessment and Plan documented above with any addition or exceptions noted below. Patient doing remarkably well. Her acute renal failure is resolved and Cr trending back near normal range. Good urine output. Her encephalopathy has improved. She is stable for discharge home with outpatient nephrology follow up. <Ronnie Alegria - Last Filed: 03/28/17 11:18>
[2017-03-28] MEDS ORDERED: hydrOXYzine 25 MG TAB PO PRN (06:59)
[2017-03-28] MEDS: Mometasone/Formoterol 120 PUFF INHALER INH SCH ×2 (07:00→18:57)
[2017-03-28] MEDS: 1/2 NS w/KCL 20 mEq 1,000 ML IV SCH ×2 (07:10→20:07)
[2017-03-28] MEDS ORDERED: hydrOXYzine 10 MG TAB PO PRN (07:30)
--- NOTE | 2017-03-28 09:14 | PRG ---
DATE OF SERVICE: 03/28/2017 SERVICE: Renal Medicine. SUBJECTIVE: Ms. Norman is a 51-year-old black female who was seen for an acute kidney injury. This was secondary to a possible hemodynamically mediated renal dysfunction. She actually improved with I V hydration, although she received a 1 time dialysis due to the severe uremia and decreased mentation . Since that time, empiric volume repletion was given which clinically improved the patient. Her ur emic sign and symptoms may also been clouded by her previous intake of tramadol. She tells me now wi th a clear mentation, that she was taking tramadol prior to the hospitalization. This morning, she v oices no new complaints. She denies any chest pain or shortness of breath. PHYSICAL EXAMINATION: VITAL SIGNS: Blood pressure is 135/75, heart rate 82, respiratory rate 20, temperature 98.1, pulse o x 93%. GENERAL: Noted to be awake, alert, comfortable, not in overt distress. SKIN: Adequate turgor. HEENT: Pinkish conjunctivae, anicteric sclerae. NECK: No neck mass. No carotid bruits, no JVD. CHEST: No deformities. LUNGS: Clear breath sounds, no wheezing, no crackles. HEART: Normal sinus rhythm. No murmur, no gallops or rubs. ABDOMEN: Globular, soft, nontender, no masses. EXTREMITIES: No edema, no deformities. MEDICATIONS: Of 03/28/2017 was reviewed. LABORATORY DATA: Of 03/28/2017, sodium 147, potassium 3.6, chloride 110, carbon dioxide 28, BUN 43, creatinine 1.6, GFR 421 mL per minute, glucose 87, calcium 8.1. ASSESSMENT AND PLAN: 1. Acute kidney injury - most likely a hemodynamically mediated renal dysfunction. Much improved re nal function with IV hydration. GFR is now noted at 421 mL per minute. We will discontinue dialysis . I would suggest she pull out femoral dialysis catheter out. I am amendable for the patient being discharged and we will follow her up at the [facility]. 2. Hypernatremia, encourage free water intake with this patient. 3. Decreased mentation much improved, most likely from metabolic encephalopathy as well as being agg ravated by previous intake of tramadol. Agree with current management.
[2017-03-28] MEDS: Docusate 100 MG CAP PO SCH ×2 (09:24→20:10)
[2017-03-28] MEDS: Heparin 5,000 UNITS/ML VIAL SC SCH (09:24)
[2017-03-28] MEDS: Nystatin Ointment 15 GM TUBE TOP SCH ×2 (09:25→20:10)
[2017-03-28] MEDS ORDERED: Magnesium Oxide 400 MG TAB PO SCH ×2 (10:00→10:04)
[2017-03-28] MEDS ORDERED: Magnesium Sulfate 1 GM/2 ML VIAL IM SCH (10:15)
[2017-03-28] MEDS ORDERED: Magnesium 2 GM/NS 0.9% 50 ML 2 GM in Premix Bag 1 BAG IVPB SCH (17:15)
[2017-03-28] MEDS ORDERED: Magnesium 2 GM/NS 0.9% 100 ML 2 GM in Premix Bag 1 BAG IVPB SCH (20:15)
[2017-03-29 06:09] LABS: Anion Gap 13 mmol/L (10-20); BUN (Urea Nitrogen) 22 mg/dL (9.8-20.1); Calc. Creatinine Clearance 82 mL/min (70-130); Calcium 8.2 mg/dL (7.8-10.44); Carbon Dioxide 28 mmol/L (22-29); Chloride 109 mmol/L (98-107); Estimated GFR-MDRD 54; Glucose 112 mg/dL (70-105); Magnesium 1.4 mg/dL (1.6-2.6); Potassium 3.4 mmol/L (3.5-5.1); Sodium 147 mmol/L (136-145)
[2017-03-29] MEDS ORDERED: Magnesium Oxide 400 MG TAB PO SCH ×2 (06:30→12:15)
[2017-03-29] MEDS: Mometasone/Formoterol 120 PUFF INHALER INH SCH ×2 (06:44→18:39)
--- NOTE | 2017-03-29 07:32 | PDOC.FM ---
- Subjective Subjective: Patient doing well this AM. No specific complaints. Tolerating PO well. Denies CP, SOB, N/V/D, abdominal pain, leg swelling. - Objective MAR Reviewed: Yes Vital Signs & Weight: Vital Signs (12 hours) Temp Pulse Resp BP Pulse Ox 03/29/17 06:46 75 16 100 03/29/17 06:44 75 16 100 03/29/17 04:20 93 L 03/29/17 04:00 98.9 F 73 20 154/74 H 94 L 03/29/17 00:00 98.9 F 92 20 160/98 H 93 L 03/28/17 23:05 94 L 03/28/17 20:00 98.7 F 95 20 122/61 92 L Weight Admit Weight 110.223 kg Weight 99.246 kg I&O: 03/28/17 03/29/17 03/30/17 06:59 06:59 06:59 Intake Total 3520 790 Output Total 1750 800 Balance 17710 Result Diagrams: 03/25/17 09:58 03/29/17 05:24 <Christiane Mclean - Last Filed: 03/29/17 07:30> - Objective Vital Signs & Weight: Vital Signs (12 hours) Temp Pulse Resp BP Pulse Ox 03/29/17 12:30 98.7 F 79 18 137/74 95 03/29/17 10:21 73 16 97 03/29/17 08:41 98.3 F 73 16 03/29/17 08:36 98.3 F 88 20 132/63 94 L 03/29/17 06:46 75 16 100 03/29/17 06:44 75 16 100 03/29/17 04:20 93 L 03/29/17 04:00 98.9 F 73 20 154/74 H 94 L Weight Admit Weight 110.223 kg Weight 99.246 kg I&O: 03/28/17 03/29/17 03/30/17 06:59 06:59 06:59 Intake Total 3520 790 Output Total 1750 800 Balance 1770 10 Result Diagrams: 03/25/17 09:58 03/29/17 05:24 <River Jacobs - Last Filed: 03/29/17 13:03> Phys Exam - Physical Examination Constitutional: NAD HEENT: moist MMs Respiratory: no wheezing, no rales, no rhonchi, clear to auscultation bilateral Cardiovascular: RRR, no significant murmur, no rub Gastrointestinal: soft, non-tender, no distention, positive bowel sounds Musculoskeletal: no edema, pulses present Neurological: non-focal, moves all 4 limbs Psychiatric: normal affect, A&O x 3 <Christiane Mclean - Last Filed: 03/29/17 07:30> Dx/Plan (1) Acute renal failure Status: Acute QualifierTitle: Acute renal failure type: with acute tubular necrosis Qualified Code(s): N17.0 - Acute kidney failure with tubular necrosis Plan: Likely ATN. Patient's kidney function improved from Cr 21 to 1.25 and GFR of 2 to 54 since admission. Patient did not require dialysis Dr. Yan with Nephrology on board, has cleared for d/c -f/u outpatient (2) Hypomagnesemia Code(s): E83.42 - HYPOMAGNESEMIA Status: Acute Plan: Mag dropped to 0.9 yesterday, has improved to 1.4 today s/p repletion (3) Hyperkalemia Code(s): E87.5 - HYPERKALEMIA Status: Resolved Plan: Patient initially had K of 6.5 on admission due to BRIE, s/p insulin and calcium chloride in ED K is now 3.4. Will monitor and replete as needed (4) Yeast infection Code(s): B37.9 - CANDIDIASIS, UNSPECIFIED Status: Acute Plan: Topical nystatin, asymptomatic today (5) HTN (hypertension) Code(s): I10 - ESSENTIAL (PRIMARY) HYPERTENSION Status: Acute QualifierTitle: Hypertension type: essential hypertension Qualified Code( s): I10 - Essential (primary) hypertension Plan: Cont home meds (6) Asthma Code(s): J45.909 - UNSPECIFIED ASTHMA, UNCOMPLICATED Status: Acute QualifierTitle: Asthma severity: unspecified severity Asthma persistence : unspecified Asthma complication type: unspecified Qualified Code(s): J45.909 - Unspecified asthma, uncomplicated Plan: Cont home meds <Christiane Mclean - Last Filed: 03/29/17 07:30> Attending Addendum - Attending Addendum I personally evaluated the patient and discussed the management with Dr. Mclean. I agree with and repeated the History, Examination, Assessment and Plan documented above with any addition or exceptions noted below. She is doing well this morning. BRIE improved, good urine output. Hypomagnesemia repleted and recheck and plan for discharge afterward. <River Jacobs - Last Filed: 03/29/17 13:03>
[2017-03-29] MEDS: 1/2 NS w/KCL 20 mEq 1,000 ML IV SCH ×2 (08:19→17:06)
[2017-03-29] MEDS: Docusate 100 MG CAP PO SCH (08:32)
[2017-03-29] MEDS: Nystatin Ointment 15 GM TUBE TOP SCH (08:37)
--- NOTE | 2017-03-29 10:59 | PRG ---
DATE OF SERVICE: 03/29/2017 SUBJECTIVE: Ms. Norman is a 51-year-old black female, who was seen for acute kidney injury. She initially was found to have ATN, but she spontaneously recovered with renal function with IV hydration. She did receive one time dose of dialysis. This morning she is feeling better. Femoral dialysis catheter has been pulled. No new complaints. No chest pain, shortness of breath. PHYSICAL EXAMINATION: VITAL SIGNS: Blood pressure 132/63, heart rate 73, respiratory rate 16, pulse ox 97%, temperature 98.3. GENERAL: Awake, alert, comfortable. SKIN: Adequate turgor. HEENT: Pinkish conjunctivae, anicteric sclerae. NECK: No neck mass, no carotid bruits, no JVD. CHEST: No deformities. LUNGS: Clear breath sounds, no wheezing, no crackles. HEART: Normal sinus rhythm. No murmurs, gallops or rubs. ABDOMEN: Globular, soft, nontender, no masses. EXTREMITIES: No edema. No deformities. MEDICATIONS: Medications of 03/29/2017 was reviewed. LABORATORY DATA: Laboratories of 03/25/2017; white count 6.4, hemoglobin 13.7. on 03/29/2017; sodium 147, potassium 3.4, chloride 109, carbon dioxide 28, BUN 22, creatinine 1.25, glucose 112, calcium 8.2, magnesium 1.4. ASSESSMENT AND PLAN: 1. Mild hypernatremia. Encourage free water intake with the patient. I think she will equilibrate with this. 2. Acute kidney injury hemodynamically mediated renal dysfunction, much improved. Continue to hold off any diuretics or KALANI inhibitors. 3. Mild hypomagnesemia - increase dietary intake. 4. Overall, agree with current management. Okay for discharge. We will follow up this patient at the [facility]. JIA
[2017-03-29] MEDS ORDERED: Magnesium 2 GM/NS 0.9% 100 ML 2 GM in Premix Bag 1 BAG IVPB SCH (15:30)
[2017-03-29 16:20] VITALS: BP 162/80; TEMP 98.6
--- NOTE | 2017-03-30 17:42 | DIS-2 ---
DATE OF ADMISSION: 03/24/2017 DATE OF DISCHARGE: 03/29/2017 RESIDENT: Daren David M.D. ADMITTING ATTENDING: Nusrat Cisneros M.D. DISCHARGE ATTENDING: River Jacobs M.D. CONSULTATIONS: Nephrology, Dr. Torsten Yan, on 03/25/2017. PROCEDURES PERFORMED: 1. Chest x-ray on 03/24/2017. No radiographic evidence of acute cardiopulmonary process. 2. CT of the brain without contrast on 03/24/2017. Impression: No CT evidence of acute intracrania l process. 3. CT abdomen and pelvis without contrast on 03/24/2017. Impression: No CT evidence of urinary tra ct calculi or obstruction, sigmoid diverticulosis. 4. Portable spine KUB on 03/25/2017. Impression: Right femoral vascular catheter. 5. Bilateral renal sonogram on 03/25/2017. Impression: No evidence of urinary tract obstruction. PRIMARY DIAGNOSIS: Acute renal failure. SECONDARY DIAGNOSES: 1. Hyperkalemia. 2. Increasing anion gap metabolic acidosis. 3. Hypertension. 4. Yeast infection. 5. Hypomagnesemia. 6. Asthma. DISCHARGE MEDICATIONS: 1. Nystatin, Mycostatin ointment 1 application topical b.i.d. 2. Vitamin D3 1000 units p.o. daily. 3. Advair Diskus 250/50 two puffs p.o. daily. DISCONTINUED MEDICATIONS: 1. Lisinopril 20 mg p.o. daily. 2. Hydrochlorothiazide 25 mg p.o. daily. 3. Zofran 4 mg p.o. q.6 hours p.r.n. 4. Colace 100 mg p.o. b.i.d. 5. Heparin 5000 units subcu t.i.d. 6. Acetaminophen 650 mg p.o. q.4 hours p.r.n. 7. Normal saline 150 mL IV. 8. Magnesium oxide. 9. Magnesium sulfate. 10. Potassium chloride. 11. Hydroxyzine. HISTORY OF PRESENT ILLNESS AND HOSPITAL COURSE: Ms. Magdalena Norman is a 51-year-old female with past medical history of diabetes mellitus, hypertension, obesity, asthma, bipolar and schizoaffective dis order, who presented to the ED on 03/24/2017 with complaints of dizziness that has been occurring for 2-3 weeks and associated poor appetite and nausea as well as no urine output for the last 2 weeks an d no bowel movements for the last 2 weeks per the patient. The patient was a poor historian, was fou nd to be A&O x2. She was also found to be in acute renal failure in the ED. The patient denies any medication changes, not taking anything with the medications, not taking any over the counter medicat ions or supplements. She has no history of kidney stones or chronic kidney disease. Patient also re ported dysuria over the last couple of days. She was found to have an elevated potassium and was giv en Novolin 10 units, sodium bicarbonate 1 amp, calcium chloride and D50 water. The patient was initi ally taken for emergency dialysis, but did not tolerate it. After 1 hour, she became hypotensive in the ED; she was transferred to the floor and was given fluids. Dr. Yan with Nephrology was consulted immediately. In the ED, the patient's initial labs when she arrived to the ED was sodium 138, potas sium 6.5, chloride 97, bicarbonate 10, BUN of 186, creatinine 21.11, GFR of 2, anion gap of 21, magne sium 3.5. Lactic acid was 2. D-dimer 3.1. CK was 333, CK-MB 7.5 and troponin 0.037. The patient's urine studies showed a prerenal azotemia and initially we thought this was superimposed acute tubula r necrosis; however, the patient started to drastically improve with the IV fluids, so it is likely t hat this may have been simply hemodynamically mediated renal dysfunction. She diuresed well with rec eiving IV fluids. The metabolic acidosis, improved. Hypernatremia initially worsened and we switche d the fluids to half-normal saline with potassium replacement. The patient's kidney function improve d dramatically over the course of her admission. On day of discharge, the patient's creatinine has i mproved to 1.25, GR down all the way up to 54. The patient's mentation improved dramatically as well . She is A&O x4. The patient was cleared for discharge by Nephrology on 03/29/2016 with instruction s to follow up with the renal clinic in a couple days. The patient was instructed not to take anymor e hydrochlorothiazide or lisinopril at this time. DISPOSITION: Stable. The patient should continue to recover successfully if she continues normal di et and fluid intake and if she follows up with renal clinic in 2-3 days. DISCHARGE INSTRUCTIONS: 1. Location: Home. 2. Diet: Diabetic diet. 3. Activity: As tolerated. 4. Followup: Follow up with her regular physician and renal clinic within next 3 days.
--- NOTE | 2017-04-12 22:41 | EKG ---
Test Reason : Blood Pressure : / mmHG Vent. Rate : 094 BPM Atrial Rate : 094 BPM P-R Int : 114 ms QRS Dur : 074 ms QT Int : 368 ms P-R-T Axes : 078 063 058 degrees QTc Int : 460 ms Normal sinus rhythm Low voltage QRS Borderline ECG Confirmed by BONNIE SHAIKH ([id number]), editor school photograph BRANT PABLO ([id number]) on 04/12/2017 10:40:50 PM Referred By: MD SHAIKH Confirmed By:BONNIE SHAIKH
== END 2017-03-29 20:30 | disposition home or self-care (01) | DRG 682 ==
LOC: ERS 19:20 → ERHOLD 22:51 → 2NO 03-25 15:22
PROVIDERS: ADMIT Student in an Organized Health Care Education/Training Program; ATTEND Student in an Organized Health Care Education/Training Program
PROC: 06HY33Z Insertion of Infusion Device into Lower Vein, Percutaneous Approach (ICD-10-PCS; 2017-03-24)
PROC: 5A1D70Z Performance of Urinary Filtration, Intermittent, Less than 6 Hours Per Day (ICD-10-PCS; principal; 2017-03-25)
DX: N17.0 Acute kidney failure with tubular necrosis (principal); G93.41 Metabolic encephalopathy; I95.9 Hypotension, unspecified; E87.0 Hyperosmolality and hypernatremia; E87.2 Acidosis; E66.01 Morbid (severe) obesity due to excess calories; E83.42 Hypomagnesemia; Z68.41 Body mass index [BMI] 40.0-44.9, adult; N18.3 Chronic kidney disease, stage 3 (moderate); E11.9 Type 2 diabetes mellitus without complications; Z79.4 Long term (current) use of insulin; J45.909 Unspecified asthma, uncomplicated; F31.9 Bipolar disorder, unspecified; Z79.51 Long term (current) use of inhaled steroids; F17.210 Nicotine dependence, cigarettes, uncomplicated; E87.5 Hyperkalemia; I12.9 Hypertensive chronic kidney disease with stage 1 through stage 4 chronic kidney disease, or unspecified chronic kidney disease; E87.6 Hypokalemia; B37.9 Candidiasis, unspecified
CPT/HCPCS: 36415; 36416; 36556; 51702; 70450; 71045; 74018; 74176; 76770; 80048; 80053; 80178; 80306; 81003; 81015; 82306; 82533; 82550; 82553; 82570; 82805; 83036; 83605; 83690; 83735; 83930; 83935; 83970; 84100; 84300; 84443; 84484; 84540; 84550; 85025; 85379; 85610; 85730; 86850; 86900; 86901; 87040; 87086; 87340; 87804; 90471; 90682; 90935; 93005; 94640; 96361; 96365; 96375; C1752; G0008; G0257; J0290; J0696; J1644; J1815; J2001; J2060; J3475; J7050; J7620; Q2036

== ENCOUNTER 2017-04-16 19:03 | Emergency (ER) | payer OTHER ==
[2017-04-16 19:26] LABS: #Basophils 0.1 thou/uL (0.0-0.2); #Eosinphils 0.1 thou/uL (0.0-0.7); #Lymphocytes 2.4 thou/uL (1.20-3.40); #Monocytes 0.3 thou/uL (0.11-0.59); #Neutrophils 2.1 thou/uL (1.40-6.50); %Basophils 1.3 % (0.0-1.0); %Eosinophils 2.8 % (0.0-10.0); %Lymphocytes 48.2 % (21.0-51.0); %Monocytes 5.9 % (0.0-10.0); %Neutrophils 41.8 % (42.0-75.0); Hemoglobin 11.8 g/dL (12.0-16.0); Mean Corpuscular HGB CONC 32.9 g/dL (32.0-36.0); Mean Corpuscular Hemoglobin 25.9 pg (27.0-31.0); Mean Corpuscular Volume 78.6 fl (81.0-99.0); Mean Platelet Volume 9.4 fL (7.4-10.4); Platelet Count 261 thou/uL (130-400); Red Blood Cell (RBC) Count 4.55 mill/uL (4.20-5.40)
[2017-04-16 19:46] LABS: ALT (SGPT) 17 U/L (8-55); AST (SGOT) 21 U/L (5-34); Albumin 3.7 g/dL (3.5-5.0); Alkaline Phosphatase 84 U/L (40-150); Anion Gap 17 mmol/L (10-20); BUN (Urea Nitrogen) 32 mg/dL (9.8-20.1); Bilirubin, Total 0.2 mg/dL (0.2-1.2); Calc. Creatinine Clearance 0 mL/min (70-130); Calcium 10.1 mg/dL (7.8-10.44); Carbon Dioxide 27 mmol/L (22-29); Chloride 100 mmol/L (98-107); Estimated GFR-MDRD 24; Globulin 5.2 g/dL (2.4-3.5); Glucose 135 mg/dL (70-105); Potassium 4.7 mmol/L (3.5-5.1); Protein, Total 8.9 g/dL (6.0-8.3); Sodium 139 mmol/L (136-145)
[2017-04-16 22:21] LABS: Bilirubin Negative (Negative); Blood, Urine Negative (Negative); Clarity CLEAR (Clear); Glucose, Urine (Dipstick) 250 mg/dL (Negative); Leukocyte Small (Negative); Nitrite Negative (Negative); Protein, Urine (Dipstick) 30 mg/dL (Neg-Trace); Specific Gravity, Urine 1.017 (1.002-1.036); Urobilinogen 0.2 mg/dL (0.2-1.0)
[2017-04-16 22:23] LABS: Bacteria/HPF None Seen HPF (None Seen); Hyaline Casts/LPF 0-3 HYALINE CAST LPF (0-3 Hyaline); RBC/HPF 0-3 HPF (0-3); WBC/HPF 0-3 HPF (0-3)
== END 2017-04-16 23:20 | disposition home or self-care (01) ==
LOC: ERS 19:03
DX: I12.9 Hypertensive chronic kidney disease with stage 1 through stage 4 chronic kidney disease, or unspecified chronic kidney disease (principal); N18.9 Chronic kidney disease, unspecified; J44.9 Chronic obstructive pulmonary disease, unspecified; F31.9 Bipolar disorder, unspecified; F25.9 Schizoaffective disorder, unspecified; E66.9 Obesity, unspecified; F17.210 Nicotine dependence, cigarettes, uncomplicated
CPT/HCPCS: 36415; 80053; 81003; 81015; 85025; 87086; 99284

== ENCOUNTER 2017-04-18 11:37 | Emergency (ER) | payer OTHER ==
[2017-04-18 12:14] LABS: #Basophils 0.1 thou/uL (0.0-0.2); #Eosinphils 0.1 thou/uL (0.0-0.7); #Lymphocytes 1.5 thou/uL (1.20-3.40); #Monocytes 0.2 thou/uL (0.11-0.59); #Neutrophils 2.4 thou/uL (1.40-6.50); %Basophils 1.7 % (0.0-1.0); %Eosinophils 2.4 % (0.0-10.0); %Monocytes 3.8 % (0.0-10.0); Hemoglobin 11.7 g/dL (12.0-16.0); Mean Corpuscular HGB CONC 31.5 g/dL (32.0-36.0); Mean Corpuscular Hemoglobin 24.9 pg (27.0-31.0); Mean Platelet Volume 9.5 fL (7.4-10.4); Platelet Count 256 thou/uL (130-400); White Blood Cell (WBC) Count 4.2 thou/uL (4.8-10.8)
[2017-04-18 12:36] LABS: CKMB 1.4 ng/mL (0-6.6); Troponin I 0.014 ng/mL (< 0.028)
[2017-04-18 12:37] LABS: ALT (SGPT) 15 U/L (8-55); AST (SGOT) 25 U/L (5-34); Albumin 3.8 g/dL (3.5-5.0); Alkaline Phosphatase 77 U/L (40-150); Anion Gap 15 mmol/L (10-20); BUN (Urea Nitrogen) 33 mg/dL (9.8-20.1); Bilirubin, Total 0.3 mg/dL (0.2-1.2); Calc. Creatinine Clearance 0 mL/min (70-130); Calcium 10.3 mg/dL (7.8-10.44); Carbon Dioxide 28 mmol/L (22-29); Chloride 99 mmol/L (98-107); Estimated GFR-MDRD 32; Glucose 155 mg/dL (70-105); Lipase 19 U/L (8-78); Potassium 4.6 mmol/L (3.5-5.1); Protein, Total 8.8 g/dL (6.0-8.3); Sodium 137 mmol/L (136-145)
[2017-04-18 12:39] LABS: Bilirubin Negative (Negative); Blood, Urine Negative (Negative); Clarity CLOUDY (Clear); Glucose, Urine (Dipstick) 250 mg/dL (Negative); Leukocyte Trace (Negative); Nitrite Negative (Negative); Protein, Urine (Dipstick) 30 mg/dL (Neg-Trace); Specific Gravity, Urine 1.016 (1.002-1.036); Urobilinogen 0.2 mg/dL (0.2-1.0); pH, Urine 6.5 (5.0-9.0)
[2017-04-18 12:42] LABS: Hyaline Casts/LPF 0-3 HYALINE CAST LPF (0-3 Hyaline); Pathc Cast-AUWi Flag 0.13 (0-2.49); RBC/HPF 0-3 HPF (0-3)
[2017-04-18 12:46] LABS: Yeast-AUWi Flag 31.5 (0-25.0)
[2017-04-18 12:54] LABS: Bacteria/HPF Rare-Few HPF (None Seen); Yeast-All Forms None Seen HPF (None Seen)
[2017-04-18 12:58] LABS: CK (CPK) 184 U/L (29-168)
--- NOTE | 2017-04-18 13:49 | RAD ---
AP VIEW OF THE CHEST: INDICATION: Dizziness. Altered mental status. COMPARISON: Prior exam dated 03/24/17. FINDINGS: No airspace consolidation or pleural effusion is evident. Cardiomediastinal silhouette is within nor mal limits. No acute osseous abnormality is evident. IMPRESSION: No acute cardiopulmonary abnormalities. POS: [facility]
== END 2017-04-18 14:33 | disposition home or self-care (01) ==
LOC: ERS 11:37
DX: R42 Dizziness and giddiness (principal); J44.9 Chronic obstructive pulmonary disease, unspecified; I10 Essential (primary) hypertension; E66.9 Obesity, unspecified; F31.9 Bipolar disorder, unspecified; F25.9 Schizoaffective disorder, unspecified; F17.210 Nicotine dependence, cigarettes, uncomplicated; Z79.899 Other long term (current) drug therapy
CPT/HCPCS: 36415; 71045; 80053; 81003; 81015; 82553; 83690; 83880; 84484; 85025; 93005; 96360

== ENCOUNTER 2017-04-19 12:17 | Emergency (ER) | payer OTHER ==
[2017-04-19 13:42] LABS: Hemoglobin 11.2 g/dL (12.0-16.0); Mean Corpuscular HGB CONC 31.7 g/dL (32.0-36.0); Mean Corpuscular Hemoglobin 25.1 pg (27.0-31.0); Mean Corpuscular Volume 79.2 fl (81.0-99.0); Mean Platelet Volume 9.6 fL (7.4-10.4); Platelet Count 243 thou/uL (130-400); RBC Distribution Width 13.8 % (11.5-14.5); Red Blood Cell (RBC) Count 4.45 mill/uL (4.20-5.40); White Blood Cell (WBC) Count 3.7 thou/uL (4.8-10.8)
[2017-04-19 13:48] LABS: Prothrombin Time 12.8 SEC (12.0-14.7)
[2017-04-19 13:50] LABS: D-Dimer Test 1.37 *mcg/mL (0.27-0.43)
[2017-04-19] MEDS ORDERED: Meclizine HCl 25 MG TAB ONE (13:58)
[2017-04-19] MEDS ORDERED: Dexamethasone 10 MG/ML VIAL ONE (13:58)
[2017-04-19 14:02] LABS: Bilirubin Negative (Negative); Blood, Urine Negative (Negative); Clarity CLEAR (Clear); Glucose, Urine (Dipstick) 500 mg/dL (Negative); Leukocyte Negative (Negative); Nitrite Negative (Negative); Protein, Urine (Dipstick) Negative (Neg-Trace); Specific Gravity, Urine 1.015 (1.002-1.036); Urobilinogen 0.2 mg/dL (0.2-1.0); pH, Urine 6.5 (5.0-9.0)
[2017-04-19 14:03] LABS: ALT (SGPT) 16 U/L (8-55); AST (SGOT) 22 U/L (5-34); Albumin 3.6 g/dL (3.5-5.0); Alkaline Phosphatase 75 U/L (40-150); Anion Gap 16 mmol/L (10-20); BUN (Urea Nitrogen) 27 mg/dL (9.8-20.1); Bilirubin, Total 0.3 mg/dL (0.2-1.2); CK (CPK) 193 U/L (29-168); Calc. Creatinine Clearance 0 mL/min (70-130); Calcium 10.1 mg/dL (7.8-10.44); Carbon Dioxide 27 mmol/L (22-29); Chloride 98 mmol/L (98-107); Estimated GFR-MDRD 31; Globulin 4.6 g/dL (2.4-3.5); Glucose 211 mg/dL (70-105); Magnesium 2.1 mg/dL (1.6-2.6); Protein, Total 8.2 g/dL (6.0-8.3); Sodium 137 mmol/L (136-145)
[2017-04-19 14:04] LABS: Hypochromia SLIGHT = 6-15 cells (100X) (0-5/hpf); Lymphocytes 20 % (21-51); MDiff Complete? YES; Microcytosis SLIGHT = 6-15 cells (100X) (0-5/hpf); Monocytes 6 % (0-10); Neutrophil 74 % (42-75); PLT Morphology Comment Appears Adequate
[2017-04-19] MEDS ORDERED: Lorazepam 2 MG/ML VIAL ONE (14:07)
--- NOTE | 2017-04-19 15:29 | CT ---
CT HEAD NONCONTRAST: HISTORY: Dizziness. COMPARISON: 03/24/17. FINDINGS: There is no evidence of acute intracranial hemorrhage or infarct. The ventricles appear normal in si ze, shape, and position. There is no mass effect or shift of midline structures. The visualized par anasal sinuses remain well aerated. IMPRESSION: No acute intracranial abnormalities are demonstrated on noncontrast CT head. POS: [facility]
--- NOTE | 2017-04-19 16:18 | NM ---
VENTILATION PERFUSION LUNG SCAN 04/19/17 HISTORY: 51-year-old female with altered mental status, COPD, smoking history, and elevated D-dimer. The patient inhaled approximately 13 millicuries of Xenon 133 gas. There is some minimal trapping in the left lower lobe. PERFUSION LUNG SCAN: Patient was injected with 6.2 millicuries technetium 99m MAA intravenously. There are no segmental or larger areas of absolute perfusion defect. IMPRESSION: Trapping in the left lower lobe posteriorly. No segmental or larger areas of absolute perfusion defec t. Findings are consistent with the low probability of acute PE. POS: [facility]
[2017-04-22 03:15] LABS: Chlamydia by PCR Not Detected (NotDetected); GC by PCR Not Detected (NotDetected)
== END 2017-04-19 16:20 | disposition home or self-care (01) ==
LOC: ERS 12:17
DX: A59.9 Trichomoniasis, unspecified (principal); R42 Dizziness and giddiness; J44.9 Chronic obstructive pulmonary disease, unspecified; I10 Essential (primary) hypertension; E66.9 Obesity, unspecified; F31.9 Bipolar disorder, unspecified; F17.210 Nicotine dependence, cigarettes, uncomplicated; F25.9 Schizoaffective disorder, unspecified; Z71.6 Tobacco abuse counseling
CPT/HCPCS: 36415; 70450; 78582; 80053; 81003; 82550; 82553; 83735; 84484; 85025; 85379; 85610; 85730; 87480; 87491; 87510; 87591; 87660; 93005; 96361; 96374; 96375; 99406; A9540; A9558; J1100; J2060

== ENCOUNTER 2017-07-21 10:57 | Outpatient (CLI) | payer OTHER | END 2017-07-21 10:58 | disposition home or self-care (01) | LOC: BICRAD 10:57 | DX: J44.9 Chronic obstructive pulmonary disease, unspecified (principal) | CPT/HCPCS: 71046 ==

== ENCOUNTER 2017-11-14 15:37 | Outpatient (CLI) | payer OTHER ==
--- NOTE | 2017-11-14 17:16 | MRI ---
MRI OF THE LEFT SHOULDER WITHOUT CONTRAST 11/14/17 INDICATION: Left shoulder pain. FINDINGS: Motion artifact heavily limits image detail. There is a large partial thickness articular surface tea r involving the supraspinatus and infraspinatus at the footprint. There is some intratendinous delami nation involving the infraspinatus up to the musculotendinous junction. There is a focal full thickne ss component involving the mid posterior supraspinatus on image 10 of series 8. No definite muscular atrophy is evident. There is mild suspected AC joint osteoarthrosis. No enlarged lymph nodes are evid ent. Biceps tendon appears located. There is an os acromiale present. IMPRESSION: 1. High grade partial thickness articular surface tear involving the supraspinatus and infraspin atus at the footprint. There is a full thickness component involving the mid posterior supraspinatus. There is intratendinous delamination of the partial thickness articular surface tear into the infras pinatus tendon to the musculotendinous junction. 2. Motion artifact heavily degrades image quality. 3. 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 POS: [facility]
== END 2017-11-14 15:38 | disposition home or self-care (01) ==
LOC: TBSIIMAG 15:37
PROVIDERS: ATTEND Orthopaedic Surgery
DX: M25.512 Pain in left shoulder (principal); M75.112 Incomplete rotator cuff tear or rupture of left shoulder, not specified as traumatic; M19.012 Primary osteoarthritis, left shoulder

== ENCOUNTER 2017-12-09 11:14 | Outpatient (CLI) | payer OTHER ==
[2017-12-09 12:08] LABS: Hemoglobin 12.2 g/dL (12.0-16.0); Mean Corpuscular HGB CONC 32.5 g/dL (32.0-36.0); Mean Corpuscular Hemoglobin 25.2 pg (27.0-31.0); Mean Corpuscular Volume 77.4 fL (78.0-98.0); Mean Platelet Volume 9.9 fL (7.4-10.4); Platelet Count 242 thou/uL (130-400); RBC Distribution Width 14.2 % (11.5-14.5); Red Blood Cell (RBC) Count 4.85 mill/uL (4.20-5.40); White Blood Cell (WBC) Count 4.9 thou/uL (4.8-10.8)
[2017-12-09 12:35] LABS: Anion Gap 14 mmol/L (10-20); BUN (Urea Nitrogen) 21 mg/dL (9.8-20.1); Calc. Creatinine Clearance 0 mL/min (70-130); Carbon Dioxide 26 mmol/L (22-29); Chloride 101 mmol/L (98-107); Estimated GFR-MDRD 67; Potassium 4.4 mmol/L (3.5-5.1); Sodium 137 mmol/L (136-145)
[2017-12-09 12:36] LABS: Calcium 10.1 mg/dL (7.8-10.44); Glucose 220 mg/dL (70-105)
--- NOTE | 2017-12-09 15:43 | EKG ---
Test Reason : Blood Pressure : / mmHG Vent. Rate : 083 BPM Atrial Rate : 083 BPM P-R Int : 124 ms QRS Dur : 070 ms QT Int : 382 ms P-R-T Axes : 067 020 017 degrees QTc Int : 448 ms Normal sinus rhythm Normal ECG When compared with ECG of 19-APR-2017 12:53, Criteria for Inferior infarct are no longer Present Confirmed by DR. Иван REED MD ([id number]) on 12/09/2017 3:43:21 PM Referred By: TANJA Confirmed By:DR. Иван REED MD
== END 2017-12-09 11:15 | disposition home or self-care (01) ==
LOC: LABBT 11:14
PROVIDERS: ATTEND Orthopaedic Surgery
DX: Z01.818 Encounter for other preprocedural examination (principal); M75.102 Unspecified rotator cuff tear or rupture of left shoulder, not specified as traumatic
CPT/HCPCS: 80048; 85027; 93005; 93010

== ENCOUNTER 2017-12-11 07:12 | Day surgery (SDC) | payer OTHER ==
[2017-12-09 11:57] VITALS: BMI 45.5
[2017-12-11] MEDS ORDERED: CEFAZOLIN/Water 2 GM/20 ML SYRINGE ONE (07:53)
[2017-12-11] MEDS ORDERED: Midazolam HCl 2 mg/2 ml Vial ONE (08:03)
[2017-12-11] MEDS ORDERED: Fentanyl 100 MCG/2 ML VIAL ONE ×2 (08:03→10:41)
[2017-12-11] MEDS ORDERED: Albuterol Sulfate 2.5 mg/3 ml Neb NEB SCH (08:45)
[2017-12-11] MEDS ORDERED: Albuterol Sulfate 2.5 mg/3 ml Neb ONE (08:59)
[2017-12-11] MEDS ORDERED: Ropivacaine 0.2% 550 ML 550 ML NERVE BLCK SCH (09:05)
[2017-12-11] MEDS ORDERED: HYDROcodone/Acetaminophen 5/325 mg Tablet PO PRN ×2 (09:05)
[2017-12-11] MEDS ORDERED: Ondansetron HCl/PF 4 MG/2 ML Vial IVP PRN (09:05)
[2017-12-11] MEDS ORDERED: Fentanyl 100 MCG/2 ML VIAL IV PRN (09:05)
[2017-12-11] MEDS ORDERED: Zolpidem Tartrate 5 MG TAB PO PRN (09:05)
[2017-12-11] MEDS ORDERED: Promethazine HCl 25 MG/ML VIAL IM PRN (09:05)
[2017-12-11] MEDS ORDERED: traMADol HCl 50 MG TAB PO PRN ×2 (09:05)
[2017-12-11] MEDS ORDERED: Bupivacaine/Epinephrine 0.25% 30 ML VIAL ONE (11:18)
[2017-12-11] MEDS ORDERED: Ropivacaine 0.5% HCl/PF (150 MG/30 ML VIAL) ONE (12:47)
[2017-12-11] MEDS ORDERED: Ropivacaine 0.2% HCl/PF (40 MG/20 ML VIAL) ONE (12:47)
[2017-12-11] MEDS ORDERED: Metoclopramide HCl 10 MG/2 ML VIAL ONE (13:32)
[2017-12-11] MEDS ORDERED: Glycopyrrolate 0.2 MG/ML 5 ML SYRINGE ONE (13:32)
[2017-12-11] MEDS ORDERED: PROPOFOL 200 MG/20 ML VIAL ONE (13:32)
[2017-12-11] MEDS ORDERED: Ondansetron HCl/PF 4 MG/2 ML Vial ONE (13:32)
[2017-12-11] MEDS ORDERED: PHENYLEPHRINE-NS 100 MCG/ML 10 ML SYRINGE ONE (13:32)
[2017-12-11] MEDS ORDERED: Lidocaine 1% PF 5 ML VIAL ONE (13:32)
--- NOTE | 2017-12-11 13:44 | OP ---
DATE OF PROCEDURE: 12/11/2017 PREOPERATIVE DIAGNOSES: Left full-thickness rotator cuff tear, high grade with a full-thickness comp onent os acromiale. POSTOPERATIVE DIAGNOSES: 1. Left rotator tear. 2. 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 PROCEDURE PERFORMED: Arthroscopic left rotator cuff repair. STAFF: Kobe Soto M.D. BRANCH RENTAL MANAGER: None. ANESTHESIA: Alvarez. The patient received general endotracheal intubation, interscalene block. ESTIMATED BLOOD LOSS: 30 mL. TOURNIQUET TIME: None. IMPLANTS: A 5.5 corkscrew, 5.5 SwiveLock. ANTIBIOTICS: Ancef 2 grams. COMPLICATIONS: None. HISTORY OF PRESENT ILLNESS: Ms. Norman is a 52-year-old female who presented to me with left shoulde r pain. The pain has been worse over the last 3-1/2 months. The patient had pain as high as 7/10 th at has been present for about 3-1/2 months. Denies numbness or tingling. Pain with overhead activit ies. The patient is diabetic and a smoker, she is also morbidly obese. I discussed with patient the risks and benefits of arthroscopic repair, evaluation shoulder joint, possible biceps tenodesis and tenotomy. I discussed with her the risks and benefits of surgery to include pain, scar, bleeding, in fection, damage to vital structures, decreased range of motion or strength, continued pain despite mejias rgical intervention, loss of life or limb. She understood her smoking and diabetes would inhibit her ability to heal. I discussed os acromiale which I would not try to take down, significant soft tiss ue to exposure. She understands the risks and benefits, the patient elected to proceed. PROCEDURE IN DETAIL: Timeout was performed, designating the patient's left upper extremity as the op erative site based on site, consents and markings. After completion of timeout the patient's left up per extremity was prepped and draped in sterile fashion. She was placed in beach chair position. Th e posterior working portal and anterior portal was placed. The patient's body habitus was technicall y challenging to scope. I placed intra-articularly in the joint as well as an anterior portal. I sa w the biceps. There was some degenerative labral fraying, but nothing noted of the biceps. There wa s grade 2-3 changes on the glenoid. No full thickness cartilage defects. There were some subtle jamison nges also noted on the humerus. The patient's subscapularis was intact. Due to the fraying of the r otator cuff undersurface intra-articularly it was difficult due to her habitus to get a good enough e xposure. We then moved subacromially, debrided off all the bursa, exposed, took down a little bit of the CA ligament anteriorly. We tried not to destabilize the os acromiale. We exposed the glenoid. We found the hole in the middle of the supraspinatus as just depicted fell into that space created a footprint and placed my anchor into position and placed 2 sutures in front and back, sewed the knot down, placed a lateral row to help compress it down. The patient will be discharged to home if she is stable postop. She was sutured closed with nylon. The patient will be postop discharged to home if she is stable. She will follow up with me in clinic in 2 weeks. Begin elbow, wrist, and hand motion, no shoulder or overhead motion. The patient's out look is guarded.
== END 2017-12-11 14:40 | disposition home or self-care (01) ==
LOC: SDC 07:12
PROVIDERS: ATTEND Orthopaedic Surgery
PROC: 0LM24ZZ Reattachment of Left Shoulder Tendon, Percutaneous Endoscopic Approach (ICD-10-PCS; principal; 2017-12-11)
DX: S46.012A Strain of muscle(s) and tendon(s) of the rotator cuff of left shoulder, initial encounter (principal); M25.812 Other specified joint disorders, left shoulder; F17.210 Nicotine dependence, cigarettes, uncomplicated; J44.9 Chronic obstructive pulmonary disease, unspecified; I10 Essential (primary) hypertension; Z79.84 Long term (current) use of oral hypoglycemic drugs; Z79.899 Other long term (current) drug therapy; X50.9XXA Other and unspecified overexertion or strenuous movements or postures, initial encounter
CPT/HCPCS: 94640; A4306; C1713; G8984-GP-CK; G8985-GP-CK; G8986-GP-CK; J2250; J2795; J3010; J7611

== ENCOUNTER 2019-02-08 17:23 | Emergency (ER) | payer OTHER ==
[~2019-02-08 17:23] MED LIST: Iopamidol-370 76% 500 ML 1 ML ONE
[2019-02-08 17:48] LABS: Hemoglobin 12.6 g/dL (12.0-16.0); Mean Platelet Volume 10.5 fL (7.4-10.4); Platelet Count 204 thou/uL (130-400); RBC Distribution Width 14.1 % (11.5-14.5); Red Blood Cell (RBC) Count 5.27 mill/uL (4.20-5.40); White Blood Cell (WBC) Count 4.4 thou/uL (4.8-10.8)
[2019-02-08 18:08] LABS: ALT (SGPT) 39 U/L (8-55); AST (SGOT) 37 U/L (5-34); Alkaline Phosphatase 95 U/L (40-110); Anion Gap 14 mmol/L (10-20); BUN (Urea Nitrogen) 18 mg/dL (9.8-20.1); Bilirubin, Total 0.4 mg/dL (0.2-1.2); CK (CPK) 178 U/L (29-168); Calc. Creatinine Clearance 0 mL/min (70-130); Calcium 9.8 mg/dL (7.8-10.44); Carbon Dioxide 30 mmol/L (22-29); Chloride 101 mmol/L (98-107); Estimated GFR-MDRD 63; Globulin 4.5 g/dL (2.4-3.5); Glucose 94 mg/dL (70-105); Potassium 3.7 mmol/L (3.5-5.1); Protein, Total 8.5 g/dL (6.0-8.3); Sodium 141 mmol/L (136-145)
[2019-02-08 18:09] LABS: Band 5 % (5-11); Eosinophils 5 % (0-10); Large Platelets SLIGHT; Lymphocytes 33 % (21-51); MDiff Complete? YES; Microcytosis SLIGHT = 6-15 cells (100X) (0-5/hpf); Monocytes 10 % (0-10); Neutrophil 38 % (42-75); Platelet Morphology Comment Appears Adequate; Polychromasia SLIGHT = 2-3 cells (100X) (0-2/hpf); Reactive Lymphocytes 9 % (0-10); Schistocytes SLIGHT = 2-5 cells (100X) (0-1/hpf); Target Cells MODERATE= 6-15 cells (100X) (0-1/hpf); Tear Drops SLIGHT = 2-5 cells (100X) (0-1/hpf)
[2019-02-08 19:14] LABS: Bilirubin Negative (Negative); Blood, Urine Negative (Negative); Clarity Turbid (Clear); Glucose, Urine (Dipstick) Normal (Negative); Leukocyte 75 Leu/uL (Negative); Nitrite Negative (Negative); Protein, Urine (Dipstick) 70 mg/dL (Neg-Trace); RBC/HPF 0-3 HPF (0-3); Urobilinogen Normal mg/dL (Less than 2)
[2019-02-08 19:15] LABS: Bacteria/HPF 1+ HPF (None Seen)
--- NOTE | 2019-02-08 21:08 | CT ---
CT HEAD WITHOUT CONTRAST: HISTORY: Worsening dizziness. Lightheadedness. COMPARISON: 04/19/2017 FINDINGS: There is no evidence of a hemorrhage, acute infarction, mass effect or midline shift. The ventricular system is normal in size, shape and position. There is question of a few periapical lucencies involving the left maxillary teeth, partially imaged, which could be related to small periapical abscesses. The visualized paranasal sinuses and mastoid a ir cells are clear. There has been no other interval change from prior exam. IMPRESSION: No acute intracranial abnormality is demonstrated. POS: [facility]
--- NOTE | 2019-02-08 21:10 | CT ---
CTA HEAD WITH IV CONTRAST AND 3D POST PROCESSING: CTA NECK WITH IV CONTRAST AND 3D POST PROCESSING: HISTORY: Dizziness. FINDINGS: There is good flow in the vertebrobasilar and carotid artery systems on both sides without evidence o f significant stenosis, major branch occlusion or aneurysmal formation. POS: [facility]
== END 2019-02-08 21:46 | disposition home or self-care (01) ==
LOC: ERS 17:23
DX: N39.0 Urinary tract infection, site not specified (principal); I10 Essential (primary) hypertension; R42 Dizziness and giddiness; E11.9 Type 2 diabetes mellitus without complications; E66.9 Obesity, unspecified; J44.9 Chronic obstructive pulmonary disease, unspecified; J45.909 Unspecified asthma, uncomplicated; F31.9 Bipolar disorder, unspecified; F20.9 Schizophrenia, unspecified; F17.210 Nicotine dependence, cigarettes, uncomplicated; Z79.51 Long term (current) use of inhaled steroids; Z79.899 Other long term (current) drug therapy; Z79.84 Long term (current) use of oral hypoglycemic drugs
CPT/HCPCS: 36415; 36416; 70450; 70496; 70498; 80053; 81003; 81015; 82550; 84484; 85025; 93005; Q9967

== ENCOUNTER 2019-03-25 12:20 | Emergency (ER) | payer OTHER ==
--- NOTE | 2019-03-25 13:06 | RAD ---
XR Shoulder Rt 3 View STANDARD: 03/25/2019 12:44 PM CLINICAL INDICATION: Right shoulder pain. COMPARISON: None. FINDINGS: Bones: No acute fracture. Glenohumeral joint: Normal alignment. AC joint: There is mild AC joint osteoarthrosis. Visualized lung: Clear. Soft tissues: Within normal limits. IMPRESSION: No acute fracture or subluxation demonstrated. Mild right AC joint osteoarthrosis
[2019-03-25 13:28] LABS: #Eosinphils 0.1 thou/uL (0.0-0.7); #Lymphocytes 1.4 thou/uL (1.20-3.40); #Monocytes 0.3 thou/uL (0.11-0.59); #Neutrophils 1.7 thou/uL (1.40-6.50); %Basophils 0.9 % (0.0-1.0); %Lymphocytes 40.3 % (21.0-51.0); %Monocytes 7.2 % (0.0-10.0); %Neutrophils 47.5 % (42.0-75.0); Mean Corpuscular HGB CONC 31.7 g/dL (32.0-36.0); Mean Corpuscular Volume 75.7 fL (78.0-98.0); Mean Platelet Volume 10.5 fL (7.4-10.4); Platelet Count 244 thou/uL (130-400); RBC Distribution Width 14.7 % (11.5-14.5); White Blood Cell (WBC) Count 3.5 thou/uL (4.8-10.8)
[2019-03-25 13:56] LABS: ALT (SGPT) 25 U/L (8-55); AST (SGOT) 26 U/L (5-34); Albumin 3.5 g/dL (3.5-5.0); Alkaline Phosphatase 93 U/L (40-110); Anion Gap 14 mmol/L (10-20); BUN (Urea Nitrogen) 23 mg/dL (9.8-20.1); Bilirubin, Total 0.3 mg/dL (0.2-1.2); Calc. Creatinine Clearance 0 mL/min (70-130); Calcium 9.3 mg/dL (7.8-10.44); Carbon Dioxide 29 mmol/L (22-29); Chloride 101 mmol/L (98-107); Estimated GFR-MDRD 51; Globulin 4.5 g/dL (2.4-3.5); Glucose 191 mg/dL (70-105); Sodium 140 mmol/L (136-145)
== END 2019-03-25 14:52 | disposition home or self-care (01) ==
LOC: ERS 12:20
DX: J06.9 Acute upper respiratory infection, unspecified (principal); M25.511 Pain in right shoulder; E11.9 Type 2 diabetes mellitus without complications; I10 Essential (primary) hypertension; J44.9 Chronic obstructive pulmonary disease, unspecified; E66.9 Obesity, unspecified; F25.0 Schizoaffective disorder, bipolar type; F17.210 Nicotine dependence, cigarettes, uncomplicated; Z79.51 Long term (current) use of inhaled steroids; Z79.84 Long term (current) use of oral hypoglycemic drugs; Z79.899 Other long term (current) drug therapy
CPT/HCPCS: 36415; 80053; 84484; 85025; 93005; 94640; J7620

== ENCOUNTER 2019-04-27 18:29 | Emergency (ER) | payer OTHER ==
[2019-04-28] MEDS ORDERED: Dextrose 50% Abboject 50 ML SYRINGE ONE (02:30)
== END 2019-04-27 19:10 | disposition home or self-care (01) ==
LOC: ERS 18:29
DX: S29.011A Strain of muscle and tendon of front wall of thorax, initial encounter (principal); F17.210 Nicotine dependence, cigarettes, uncomplicated; F31.9 Bipolar disorder, unspecified; I10 Essential (primary) hypertension; F25.9 Schizoaffective disorder, unspecified; J44.9 Chronic obstructive pulmonary disease, unspecified; E66.9 Obesity, unspecified; E11.9 Type 2 diabetes mellitus without complications; Z79.899 Other long term (current) drug therapy; X50.1XXA Overexertion from prolonged static or awkward postures, initial encounter; Y92.69 Other specified industrial and construction area as the place of occurrence of the external cause
CPT/HCPCS: 99283

== ENCOUNTER 2019-10-04 13:17 | Outpatient (CLI) | payer OTHER ==
--- NOTE | 2019-10-04 13:56 | MMO ---
Bilateral MAMMO Bilat Screen [facility]. CLINICAL HISTORY: Patient is 53 years old and is seen for screening. The patient has the following family history of breast cancer: maternal aunt and cousin female, maternal. The patient has no personal history of cancer. VIEWS: The views performed were: bilateral craniocaudal and bilateral mediolateral oblique. FILMS COMPARED: The present examination has been compared to a prior imaging study performed at [facility] on 10/17/2014. This study has been interpreted with the assistance of computer-aided detection. MAMMOGRAM FINDINGS: There are scattered fibroglandular densities. There are no suspicious masses, suspicious calcifications, or new areas of architectural distortion. IMPRESSION: THERE IS NO MAMMOGRAPHIC EVIDENCE OF MALIGNANCY. A ROUTINE FOLLOW-UP MAMMOGRAM IN 1 YEAR IS RECOMMENDED. ACR BI-RADS Category 1 - Negative MAMMOGRAPHY NOTE: 1. A negative mammogram report should not delay a biopsy if a dominant of clinically suspicious mass is present. 2. Approximately 10% to 15% of breast cancers are not detected by mammography. 3. Adenosis and dense breasts may obscure an underlying neoplasm. Reported by: ANTHONY GUERRERO MD Electonically Signed: [id number]
== END 2019-10-04 13:18 | disposition home or self-care (01) ==
LOC: BICMAMMO 13:17
PROVIDERS: ATTEND Nurse Practitioner Family
DX: Z12.31 Encounter for screening mammogram for malignant neoplasm of breast (principal); Z80.3 Family history of malignant neoplasm of breast
CPT/HCPCS: 77067

== ENCOUNTER 2020-02-07 10:38 | Emergency (ER) | payer OTHER ==
[2020-02-07] MEDS ORDERED: Ondansetron PF 4 MG/2 ML Vial ONE (11:36)
[2020-02-07 11:51] LABS: #Eosinphils 0.1 thou/uL (0.0-0.7); #Lymphocytes 2.5 thou/uL (1.20-3.40); #Monocytes 0.3 thou/uL (0.11-0.59); #Neutrophils 4.9 thou/uL (1.40-6.50); %Basophils 0.3 % (0.0-1.0); %Eosinophils 0.7 % (0.0-10.0); %Lymphocytes 32.1 % (21.0-51.0); %Monocytes 3.8 % (0.0-10.0); Hemoglobin 11.9 g/dL (12.0-16.0); Mean Corpuscular HGB CONC 31.5 g/dL (32.0-36.0); Mean Corpuscular Hemoglobin 24.4 pg (27.0-31.0); Mean Corpuscular Volume 77.5 fL (78.0-98.0); Mean Platelet Volume 11.4 fL (7.4-10.4); Platelet Count 183 thou/uL (130-400); RBC Distribution Width 14.4 % (11.5-14.5); Red Blood Cell (RBC) Count 4.88 mill/uL (4.20-5.40); White Blood Cell (WBC) Count 7.8 thou/uL (4.8-10.8)
[2020-02-07 12:17] LABS: ALT (SGPT) 17 U/L (8-55); AST (SGOT) 26 U/L (5-34); Albumin 3.7 g/dL (3.5-5.0); Alkaline Phosphatase 99 U/L (40-110); Anion Gap 14 mmol/L (10-20); BUN (Urea Nitrogen) 17 mg/dL (9.8-20.1); Bilirubin, Total 0.2 mg/dL (0.2-1.2); Calc. Creatinine Clearance 0 mL/min (70-130); Calcium 9.2 mg/dL (7.8-10.44); Carbon Dioxide 26 mmol/L (22-29); Chloride 99 mmol/L (98-107); Estimated GFR-MDRD 47; Globulin 4.8 g/dL (2.4-3.5); Glucose 270 mg/dL (70-105); Lipase 30 U/L (8-78); Potassium 3.9 mmol/L (3.5-5.1); Protein, Total 8.5 g/dL (6.0-8.3); Sodium 135 mmol/L (136-145)
[2020-02-07] MEDS ORDERED: Ketorolac Tromethamine 30 MG/ML VIAL ONE (12:22)
[2020-02-07] MEDS ORDERED: Morphine 4 MG/ML VIAL ONE (12:22)
--- NOTE | 2020-02-07 13:34 | ULT ---
Sonogram right upper quadrant HISTORY: Right upper quadrant pain. FINDINGS: Multiple echogenic stones are present within the gallbladder lumen and show posterior shado wing. Patient was reportedly tender over the gallbladder fossa at the time of the exam. Common duct is 0.6 cm diameter. Within the lower duct is a non-shadowing echogenic focus that is 0.4 cm diameter. Liver has normal appearance without focal mass or intrahepatic biliary dilatation. No free fluid. IMPRESSION : Cholelithiasis. While the common duct is not significantly dilated, the small echogenic focus within the central duct, in the setting of acute symptoms, is concerning for a common duct stone or mass. Positive sonographic Bailon sign is also a finding of acute cholecystitis. Clinical correlation regar ding other signs and symptoms of acute cholecystitis is required.
== END 2020-02-07 14:59 | disposition home or self-care (01) ==
LOC: ERS 10:38
DX: K80.20 Calculus of gallbladder without cholecystitis without obstruction (principal); E11.9 Type 2 diabetes mellitus without complications; I10 Essential (primary) hypertension; J44.9 Chronic obstructive pulmonary disease, unspecified; E66.9 Obesity, unspecified; F31.9 Bipolar disorder, unspecified; F25.9 Schizoaffective disorder, unspecified; F17.210 Nicotine dependence, cigarettes, uncomplicated
CPT/HCPCS: 76705; 80053; 83690; 85025; 94760; 96374; 96375; J1885; J2270; J2405

== ENCOUNTER 2020-02-13 04:42 | Emergency (ER) | payer OTHER ==
[2020-02-13] MEDS ORDERED: Ketorolac Tromethamine 30 MG/ML VIAL ONE (05:04)
[2020-02-13] MEDS ORDERED: Promethazine HCl 25 MG/ML VIAL ONE (05:23)
[2020-02-13 05:35] LABS: #Basophils 0.1 thou/uL (0.0-0.2); #Eosinphils 0.2 thou/uL (0.0-0.7); #Lymphocytes 2.6 thou/uL (1.20-3.40); #Monocytes 0.3 thou/uL (0.11-0.59); #Neutrophils 2.4 thou/uL (1.40-6.50); %Basophils 1.3 % (0.0-1.0); %Eosinophils 2.9 % (0.0-10.0); %Lymphocytes 47.1 % (21.0-51.0); %Monocytes 5.2 % (0.0-10.0); %Neutrophils 43.5 % (42.0-75.0); Hemoglobin 12.3 g/dL (12.0-16.0); Mean Corpuscular HGB CONC 31.8 g/dL (32.0-36.0); Mean Corpuscular Hemoglobin 24.2 pg (27.0-31.0); Mean Corpuscular Volume 76.1 fL (78.0-98.0); Mean Platelet Volume 10.5 fL (7.4-10.4); Platelet Count 217 thou/uL (130-400); RBC Distribution Width 14.8 % (11.5-14.5); Red Blood Cell (RBC) Count 5.09 mill/uL (4.20-5.40); White Blood Cell (WBC) Count 5.5 thou/uL (4.8-10.8)
[2020-02-13 06:01] LABS: ALT (SGPT) 21 U/L (8-55); AST (SGOT) 32 U/L (5-34); Albumin 3.6 g/dL (3.5-5.0); Alkaline Phosphatase 105 U/L (40-110); Anion Gap 15 mmol/L (10-20); BUN (Urea Nitrogen) 20 mg/dL (9.8-20.1); Bilirubin, Total 0.2 mg/dL (0.2-1.2); Calc. Creatinine Clearance 0 mL/min (70-130); Carbon Dioxide 25 mmol/L (22-29); Chloride 101 mmol/L (98-107); Estimated GFR-MDRD 45; Glucose 247 mg/dL (70-105); Lipase 47 U/L (8-78); Potassium 4.9 mmol/L (3.5-5.1); Protein, Total 8.6 g/dL (6.0-8.3); Sodium 136 mmol/L (136-145)
[2020-02-13] MEDS ORDERED: Fentanyl 100 MCG/2 ML VIAL ONE (07:10)
--- NOTE | 2020-02-13 08:05 | ULT ---
RIGHT UPPER QUADRANT ABDOMINAL ULTRASOUND: Date: 02/13/2020 HISTORY: Abdominal pain. History of gallstones. COMPARISON: 02/07/2020. TECHNIQUE: Multiplanar Cabral scale and color Doppler images were obtained in a right upper quadrant abdominal ult rasound. FINDINGS: The liver is normal in echogenicity without focal lesions or intrahepatic ductal dilatation. There is a gallstone in the gallbladder neck. There is no pericholecystic fluid or gallbladder wall thickenin g. The common bile duct is normal measuring 4.0 mm. A positive sonographic Bailon's sign was reported by the technologist. The visualized portions of the pancreas are unremarkable. There are cysts in the right kidney measuri ng up to 1.1 cm in size. No hydronephrosis or calculi are seen in the right kidney which measures 9.3 cm in length. IMPRESSION: 1. Cholelithiasis. 2. Right renal cysts. POS: [facility]
== END 2020-02-13 07:13 | disposition left against medical advice (07) ==
LOC: ERS 04:42
DX: K80.20 Calculus of gallbladder without cholecystitis without obstruction (principal); E11.9 Type 2 diabetes mellitus without complications; I10 Essential (primary) hypertension; J44.9 Chronic obstructive pulmonary disease, unspecified; F17.210 Nicotine dependence, cigarettes, uncomplicated
CPT/HCPCS: 36415; 76705; 80053; 83690; 85025; 94760; 96365; 96366; 96375; J1885; J2550; J3010

== ENCOUNTER 2020-03-03 07:14 | Outpatient (CLI) | payer OTHER | END 2020-03-03 07:15 | disposition home or self-care (01) | LOC: LABBT 07:14 | PROVIDERS: ATTEND Specialist | DX: Z01.818 Encounter for other preprocedural examination (principal); K80.20 Calculus of gallbladder without cholecystitis without obstruction | CPT/HCPCS: 93005; 93010 ==

== ENCOUNTER 2020-05-21 07:46 | Day surgery (SDC) | payer OTHER ==
[2020-05-21] MEDS ORDERED: Fentanyl 100 MCG/2 ML VIAL ONE ×2 (08:10→13:34)
[2020-05-21] MEDS ORDERED: Ondansetron PF 4 MG/2 ML Vial ONE ×2 (08:11→10:07)
[2020-05-21 08:34] LABS: #Eosinphils 0.1 thou/uL (0.0-0.7); #Lymphocytes 2.3 thou/uL (1.20-3.40); #Monocytes 0.5 thou/uL (0.11-0.59); #Neutrophils 4.3 thou/uL (1.40-6.50); %Basophils 0.4 % (0.0-1.0); %Eosinophils 1.4 % (0.0-10.0); %Lymphocytes 32.2 % (21.0-51.0); %Monocytes 6.7 % (0.0-10.0); %Neutrophils 59.3 % (42.0-75.0); Hemoglobin 11.9 g/dL (12.0-16.0); Mean Corpuscular HGB CONC 32.7 g/dL (32.0-36.0); Mean Corpuscular Volume 76.4 fL (78.0-98.0); Mean Platelet Volume 10.8 fL (7.4-10.4); Platelet Count 190 thou/uL (130-400); RBC Distribution Width 13.7 % (11.5-14.5); Red Blood Cell (RBC) Count 4.75 mill/uL (4.20-5.40); White Blood Cell (WBC) Count 7.2 thou/uL (4.8-10.8)
[2020-05-21 08:55] LABS: ALT (SGPT) 18 U/L (8-55); AST (SGOT) 20 U/L (5-34); Albumin 3.6 g/dL (3.5-5.0); Alkaline Phosphatase 115 U/L (40-110); Anion Gap 15 mmol/L (10-20); BUN (Urea Nitrogen) 33 mg/dL (9.8-20.1); Bilirubin, Total Less than 0.2 mg/dL (0.2-1.2); Calc. Creatinine Clearance 0 mL/min (70-130); Calcium 9.1 mg/dL (7.8-10.44); Carbon Dioxide 27 mmol/L (22-29); Chloride 97 mmol/L (98-107); Globulin 4.6 g/dL (2.4-3.5); Glucose 347 mg/dL (70-105); Lipase 72 U/L (8-78); Potassium 4.3 mmol/L (3.5-5.1); Protein, Total 8.2 g/dL (6.0-8.3); Sodium 135 mmol/L (136-145)
[2020-05-21] MEDS ORDERED: Lidocaine 1% PF 5 ML VIAL ONE (10:07)
[2020-05-21] MEDS ORDERED: PROPOFOL 200 MG/20 ML VIAL ONE (10:07)
[2020-05-21] MEDS ORDERED: diphenhydrAMINE 50 MG/ML VIAL ONE (10:07)
[2020-05-21] MEDS ORDERED: Rocuronium Bromide 10 MG/ML (10ML VIAL) ONE (10:07)
[2020-05-21 10:31] LABS: Bacteria/HPF None Seen HPF (None Seen); Bilirubin Negative (Negative); Blood, Urine Negative (Negative); Clarity Clear (Clear); Glucose, Urine (Dipstick) Greater than 1000 mg/dL (Negative); Ketone, Urine Negative (Negative); Leukocyte 25 Leu/uL (Negative); Nitrite Negative (Negative); Protein, Urine (Dipstick) Negative (Neg-Trace); RBC/HPF 0-3 HPF (0-3); Specific Gravity, Urine 1.016 (1.002-1.036); Urobilinogen Normal mg/dL (Less than 2); WBC/HPF 0-3 HPF (0-3); pH, Urine 5.5 (5.0-9.0)
[2020-05-21] MEDS ORDERED: Iopamidol-370 76% 500 ML 1 ML ONE (12:11)
[2020-05-21] MEDS ORDERED: Ketorolac Tromethamine 30 MG/ML VIAL ONE (12:28)
[2020-05-21] MEDS ORDERED: Bupivacaine 0.25% HCL 30 ML VIAL ONE (13:23)
[2020-05-21] MEDS ORDERED: XYLOCAINE 2%-EPI 1:100,000 20 ML VIAL ONE (13:23)
[2020-05-21] MEDS ORDERED: Lidocaine 1% w/Epinephrine 1:100K 20 ML VIAL ONE (13:23)
[2020-05-21] MEDS ORDERED: Midazolam HCl 2 mg/2 ml Vial ONE (13:34)
[2020-05-21 14:10] LABS: SARS-CoV-2 NAA Rapid Test Not Detected (NotDetected)
[2020-05-21] MEDS ORDERED: Albuterol Sulfate HFA (OR ONLY) ONE (14:55)
[2020-05-21] MEDS ORDERED: SUGAMMADEX SODIUM 200 MG/2 ML VIAL ONE (15:45)
[2020-05-21] MEDS ORDERED: Promethazine HCl 25 MG/ML VIAL IM PRN (16:30)
[2020-05-21] MEDS ORDERED: Ondansetron HCl/PF 4 MG/2 ML Vial IVP PRN (16:30)
[2020-05-21] MEDS ORDERED: Promethazine HCl 25 MG/ML VIAL SLOW IVP PRN (16:30)
[2020-05-21] MEDS ORDERED: Labetalol HCl 100 MG/20 ML VIAL ONE (16:48)
[2020-05-21] MEDS ORDERED: traMADol HCl 50 MG TAB ONE (18:57)
== END 2020-05-21 19:10 | disposition home or self-care (01) ==
LOC: ERS 07:46 → SDC 14:03
PROVIDERS: ATTEND Specialist
PROC: 0FT44ZZ Resection of Gallbladder, Percutaneous Endoscopic Approach (ICD-10-PCS; principal; 2020-05-21)
DX: K80.10 Calculus of gallbladder with chronic cholecystitis without obstruction (principal); K82.1 Hydrops of gallbladder; E66.9 Obesity, unspecified; E11.9 Type 2 diabetes mellitus without complications; I10 Essential (primary) hypertension; F17.210 Nicotine dependence, cigarettes, uncomplicated; M43.16 Spondylolisthesis, lumbar region; J44.9 Chronic obstructive pulmonary disease, unspecified; Z79.84 Long term (current) use of oral hypoglycemic drugs; Z79.899 Other long term (current) drug therapy; Z20.822 Contact with and (suspected) exposure to COVID-19
CPT/HCPCS: 74177; 76705; 80053; 81003; 81015; 83690; 84484; 85025; 88304; 93005; 96374; 96375; J0690; J1200; J1885; J2250; J2405; J2704; J3010; Q9967; S0020; U0002

== ENCOUNTER 2021-08-13 22:07 | Emergency (ER) | payer OTHER ==
[2021-08-13 22:49] LABS: #Basophils 0.1 thou/uL (0.0-0.2); #Eosinphils 0.1 thou/uL (0.0-0.7); #Lymphocytes 2.2 thou/uL (1.20-3.40); #Monocytes 0.4 thou/uL (0.11-0.59); #Neutrophils 3.3 thou/uL (1.40-6.50); %Basophils 0.9 % (0.0-1.0); %Eosinophils 1.5 % (0.0-10.0); %Lymphocytes 36.3 % (21.0-51.0); %Neutrophils 55.3 % (42.0-75.0); Hemoglobin 11.3 g/dL (12.0-16.0); Mean Corpuscular HGB CONC 31.6 g/dL (32.0-36.0); Mean Corpuscular Hemoglobin 24.6 pg (27.0-31.0); Mean Corpuscular Volume 77.9 fL (78.0-98.0); Mean Platelet Volume 9.5 fL (7.4-10.4); Platelet Count 218 thou/uL (130-400); RBC Distribution Width 14.6 % (11.5-14.5); Red Blood Cell (RBC) Count 4.59 mill/uL (4.20-5.40)
[2021-08-13 23:10] LABS: ALT (SGPT) 18 U/L (8-55); AST (SGOT) 22 U/L (5-34); Albumin 3.5 g/dL (3.5-5.0); Alkaline Phosphatase 98 U/L (40-110); Anion Gap 13 mmol/L (10-20); BUN (Urea Nitrogen) 22 mg/dL (9.8-20.1); Bilirubin, Total 0.2 mg/dL (0.2-1.2); Calc. Creatinine Clearance 0 mL/min (70-130); Calcium 9.1 mg/dL (7.8-10.44); Carbon Dioxide 31 mmol/L (22-29); Chloride 104 mmol/L (98-107); Globulin 4.6 g/dL (2.4-3.5); Potassium 3.8 mmol/L (3.5-5.1); Protein, Total 8.1 g/dL (6.0-8.3); Sodium 144 mmol/L (136-145)
[2021-08-13 23:20] LABS: Glucose 49 mg/dL (70-105)
[2021-08-14 00:34] LABS: SARS-CoV-2 NAA Rapid Test Not Detected (NotDetected)
== END 2021-08-14 02:24 | disposition home or self-care (01) ==
LOC: ERS 22:07
DX: J44.1 Chronic obstructive pulmonary disease with (acute) exacerbation (principal); E11.9 Type 2 diabetes mellitus without complications; I10 Essential (primary) hypertension; E66.9 Obesity, unspecified; F17.210 Nicotine dependence, cigarettes, uncomplicated; Z79.84 Long term (current) use of oral hypoglycemic drugs; Z79.899 Other long term (current) drug therapy; Z20.822 Contact with and (suspected) exposure to COVID-19
CPT/HCPCS: 36415; 36416; 71045; 71275; 80053; 84484; 85025; 85379; 87040; 93005; 94640; 94760; 96374

== ENCOUNTER 2021-09-30 12:38 | Observation (INO) | payer OTHER ==
[2021-09-30 13:37] LABS: #Lymphocytes 1.5 thou/uL (1.20-3.40); #Monocytes 0.3 thou/uL (0.11-0.59); #Neutrophils 1.5 thou/uL (1.40-6.50); %Basophils 0.7 % (0.0-1.0); %Eosinophils 0.1 % (0.0-10.0); %Lymphocytes 44.6 % (21.0-51.0); %Monocytes 8.1 % (0.0-10.0); %Neutrophils 46.5 % (42.0-75.0); Hemoglobin 14.8 g/dL (12.0-16.0); Mean Corpuscular HGB CONC 32.9 g/dL (32.0-36.0); Mean Corpuscular Hemoglobin 26.3 pg (27.0-31.0); Mean Corpuscular Volume 79.8 fL (78.0-98.0); Mean Platelet Volume 8.1 fL (7.4-10.4); Platelet Count 148 thou/uL (130-400); RBC Distribution Width 15.4 % (11.5-14.5); Red Blood Cell (RBC) Count 5.62 mill/uL (4.20-5.40); White Blood Cell (WBC) Count 3.3 thou/uL (4.8-10.8)
[2021-09-30] MEDS ORDERED: Acetaminophen 500 MG TAB ONE (13:41)
[2021-09-30 13:59] LABS: ALT (SGPT) 29 U/L (8-55); AST (SGOT) 48 U/L (5-34); Acetaminophen Less than 10.0 mcg/mL (10.0-30.0); Albumin 3.8 g/dL (3.5-5.0); Alcohol Less than 10 mg/dL (Less than 10); Alkaline Phosphatase 103 U/L (40-110); Anion Gap 20 mmol/L (10-20); BUN (Urea Nitrogen) 30 mg/dL (9.8-20.1); Bilirubin, Total 0.3 mg/dL (0.2-1.2); Calc. Creatinine Clearance 0 mL/min (70-130); Calcium 9.4 mg/dL (7.8-10.44); Carbon Dioxide 20 mmol/L (22-29); Chloride 94 mmol/L (98-107); Estimated GFR 22; Globulin 4.9 g/dL (2.4-3.5); Glucose 428 mg/dL (70-105); Potassium 4.1 mmol/L (3.5-5.1); Protein, Total 8.7 g/dL (6.0-8.3); Salicylate Less than 8.0 mg/dL (15.0-30.0); Sodium 130 mmol/L (136-145)
[2021-09-30 15:03] LABS: SARS-CoV-2 NAA Rapid Test DETECTED (NotDetected)
[2021-09-30] MEDS ORDERED: Acetaminophen 650 MG Suppository PR PRN (15:12)
[2021-09-30] MEDS ORDERED: Ondansetron PF 4 MG/2 ML Vial IVP PRN (15:12)
[2021-09-30] MEDS ORDERED: Ondansetron ODT 4 MG TAB PO PRN (15:12)
[2021-09-30] MEDS ORDERED: Guaifenesin DM 100-10/5 ML UDCUP PO PRN (15:18)
[2021-09-30] MEDS ORDERED: Albuterol Sulfate 2.5 mg/3 ml Neb NEB PRN (15:42)
[2021-09-30 16:52] LABS: Lactic Acid 1.4 mmol/L (0.5-2.2)
[2021-09-30 17:21] VITALS: BMI 39.9
[2021-09-30] MEDS: Sodium Chloride 0.9% 1,000 ML IV SCH (17:39)
[2021-09-30] MEDS ORDERED: Dextrose 5% in Water 1,000 ML IV PRN (19:07)
[2021-09-30] MEDS ORDERED: HumaLOG 300 UNITS/3 ML VIAL SC PRN ×2 (19:07)
[2021-09-30] MEDS ORDERED: Dextrose 50% Abboject 50 ML SYRINGE SLOW IVP PRN (19:07)
[2021-09-30 19:37] LABS: Actual Bicarbonate (HCO3a) 26.8 mEq/L (22-28); Base Excess (BEa) 1.3 mEq/L (-2.0 to +3.0); CO2 Tension 46.1 mmHg (35.0-45.0); Calcium, Ionized (arterial) 1.15 mmol/L (1.12-1.30); Carboxyhemoglobin (COHb) 1.4 gm% (0.0-3.0); O2 Tension (PaO2), arterial 75.6 mmHg (80.0-100.0); Potassium - ABG Lab 3.72 mmol/L (3.70-5.30); pH, Arterial 7.38 (7.35-7.45)
[2021-09-30 19:40] LABS: ALV-art Gradient 16.505 mmHg (0-20); Puncture Site RRA
[2021-09-30 20:25] LABS: Magnesium 1.8 mg/dL (1.6-2.6)
[2021-09-30] MEDS: Famotidine 20 MG TAB PO SCH (20:43)
[2021-09-30] MEDS: Heparin 5,000 UNITS/ML VIAL SC SCH (20:44)
[2021-10-01 03:19] LABS: Amphetamine Not Detected (NotDetected); Barbiturates Screen Not Detected (NotDetected); Benzodiazepine Screen Not Detected (NotDetected); Cocaine Metabolite Screen Detected (NotDetected); Methadone Not Detected (NotDetected); Methamphetamine Not Detected (NotDetected); Opiate Screen Not Detected (NotDetected); Oxycodone Screen Not Detected (NotDetected); Phencyclidine (PCP) Not Detected (NotDetected); THC/Cannabinoid Screen Not Detected (NotDetected); Tricyclic Screen Not Detected (NotDetected)
[2021-10-01 05:38] LABS: Anion Gap 15 mmol/L (10-20); BUN (Urea Nitrogen) 28 mg/dL (9.8-20.1); Calc. Creatinine Clearance 47 mL/min (70-130); Carbon Dioxide 24 mmol/L (22-29); Chloride 108 mmol/L (98-107); Estimated GFR 29; Potassium 3.8 mmol/L (3.5-5.1); Sodium 143 mmol/L (136-145)
[2021-10-01 05:42] LABS: Glucose 58 mg/dL (70-105)
[2021-10-01] MEDS: Sodium Chloride 0.9% 1,000 ML IV SCH (06:03)
[2021-10-01 06:04] LABS: Anisocytosis SLIGHT = 6-15 cells (100X) (0-5/hpf); Band 1 % (5-11); Eosinophils 1 % (0-10); Hemoglobin 13.2 g/dL (12.0-16.0); Lymphocytes 76 % (21-51); MDiff Complete? YES; Mean Corpuscular HGB CONC 30.5 g/dL (32.0-36.0); Mean Corpuscular Hemoglobin 24.2 pg (27.0-31.0); Mean Corpuscular Volume 79.5 fL (78.0-98.0); Mean Platelet Volume 7.3 fL (7.4-10.4); Monocytes 9 % (0-10); Neutrophil 13 % (42-75); Platelet Count 139 thou/uL (130-400); RBC Distribution Width 15.4 % (11.5-14.5); Red Blood Cell (RBC) Count 5.44 mill/uL (4.20-5.40)
[2021-10-01] MEDS: Dextrose 5 %-0.45 % NaCl 1,000 ML IV SCH ×2 (08:36→18:52)
[2021-10-01] MEDS: Ascorbic Acid 500 mg Chewable Tablet PO SCH (08:38)
[2021-10-01] MEDS: Heparin 5,000 UNITS/ML VIAL SC SCH ×3 (08:38→20:49)
[2021-10-01] MEDS: Mometasone 100 MCG/Formoterol 5 MCG 120 PUFF INHALER INH SCH ×2 (10:05→18:51)
[2021-10-01] MEDS: Acetaminophen 325 MG TAB PO PRN (11:32)
[2021-10-01] MEDS: Famotidine 20 MG TAB PO SCH (20:49)
[2021-10-02 05:10] LABS: Anion Gap 18 mmol/L (10-20); BUN (Urea Nitrogen) 21 mg/dL (9.8-20.1); Calc. Creatinine Clearance 56 mL/min (70-130); Calcium 8.8 mg/dL (7.8-10.44); Carbon Dioxide 17 mmol/L (22-29); Chloride 105 mmol/L (98-107); Estimated GFR 35; Glucose 189 mg/dL (70-105); Potassium 4.1 mmol/L (3.5-5.1); Sodium 136 mmol/L (136-145)
[2021-10-02 05:38] LABS: Anisocytosis SLIGHT = 6-15 cells (100X) (0-5/hpf); Hemoglobin 12.7 g/dL (12.0-16.0); Hypochromia SLIGHT = 6-15 cells (100X) (0-5/hpf); Lymphocytes 60 % (21-51); MDiff Complete? YES; Mean Corpuscular HGB CONC 30.7 g/dL (32.0-36.0); Mean Corpuscular Hemoglobin 24.8 pg (27.0-31.0); Mean Platelet Volume 12.1 fL (7.4-10.4); Monocytes 3 % (0-10); Neutrophil 37 % (42-75); Platelet Count 128 thou/uL (130-400); Platelet Morphology Comment Appears Decreased; Polychromasia SLIGHT = 2-3 cells (100X) (0-2/hpf); Red Blood Cell (RBC) Count 5.09 mill/uL (4.20-5.40); White Blood Cell (WBC) Count 2.8 thou/uL (4.8-10.8)
[2021-10-02] MEDS: Mometasone 100 MCG/Formoterol 5 MCG 120 PUFF INHALER INH SCH (06:22)
[2021-10-02] MEDS: Acetaminophen 325 MG TAB PO PRN (06:26)
[2021-10-02 08:40] VITALS: TEMP 98.1
[2021-10-02] MEDS: Ascorbic Acid 500 mg Chewable Tablet PO SCH (08:48)
[2021-10-02] MEDS: Heparin 5,000 UNITS/ML VIAL SC SCH (08:48)
[2021-10-02 11:21] VITALS: BP 156/84
== END 2021-10-02 12:30 | disposition home or self-care (01) ==
LOC: ERS 12:38 → 2SW 15:11
PROVIDERS: ADMIT Internal Medicine; ATTEND Internal Medicine
DX: U07.1 COVID-19 (principal); R55 Syncope and collapse; E78.5 Hyperlipidemia, unspecified; J44.9 Chronic obstructive pulmonary disease, unspecified; N17.9 Acute kidney failure, unspecified; E11.22 Type 2 diabetes mellitus with diabetic chronic kidney disease; N18.30 Chronic kidney disease, stage 3 unspecified; F17.210 Nicotine dependence, cigarettes, uncomplicated; J45.909 Unspecified asthma, uncomplicated; E66.01 Morbid (severe) obesity due to excess calories; Z68.41 Body mass index [BMI] 40.0-44.9, adult; Z79.84 Long term (current) use of oral hypoglycemic drugs; Z79.899 Other long term (current) drug therapy
CPT/HCPCS: 36415; 36416; 36600; 70450; 71045; 80048; 80053; 80306; 80307; 82550; 82805; 83605; 83690; 83735; 84484; 85025; 85379; 90471; 90732; 93005; 93010; 93306; 96361; 96372; G0009; G0378; J1644; J1815; J7042; J7050; U0002

== ENCOUNTER 2021-12-18 07:41 | Emergency (ER) | payer OTHER ==
[2021-12-18] MEDS ORDERED: Azithromycin 250 MG TAB ONE (08:46)
[2021-12-18] MEDS ORDERED: predniSONE 20 MG TAB ONE (08:46)
== END 2021-12-18 09:25 | disposition home or self-care (01) ==
LOC: ERS 07:41
DX: J44.1 Chronic obstructive pulmonary disease with (acute) exacerbation (principal); I10 Essential (primary) hypertension; E11.9 Type 2 diabetes mellitus without complications; F17.210 Nicotine dependence, cigarettes, uncomplicated; Z79.4 Long term (current) use of insulin; Z79.899 Other long term (current) drug therapy
CPT/HCPCS: 94640; J7512; J7620

== ENCOUNTER 2022-12-19 11:15 | Outpatient (CLI) | payer OTHER | END 2022-12-19 11:16 | disposition home or self-care (01) | LOC: BICRAD 11:15 | PROVIDERS: ATTEND Preventive Medicine Occupational Medicine | DX: M51.26 Other intervertebral disc displacement, lumbar region (principal); M47.816 Spondylosis without myelopathy or radiculopathy, lumbar region | CPT/HCPCS: 72100 ==